=== PATIENT | male | born 1925 | race African-American/Black ===

== ENCOUNTER 2016-07-02 11:20 | Inpatient (IN) | payer MEDICARE, OTHER ==
[~2016-07-02] VITALS: Ht 185.4 cm; Wt 90.7 kg
--- NOTE | 2016-07-02 12:30 | Emergency Room Report ---
History of Present Illness General Chief Complaint: Edema Source: Patient, Medical Record, EMS Present Illness HPI Patient presents from nursing facility with several complaints I spoke to the patient's primary physician was concerned that the patient is fairly to take oral intake Also noticed increased swelling in both lower extremities Patient has a history of CHF Denied any chest pain at this time denies any shortness of breath Denies any back or flank pain Patient has felt increasingly weak over the past several days denies any obvious focal weakness or fall Allergies: Coded Allergies: BENAZEPRIL (Unverified Allergy, Intermediate, 03/03/16) TERAZOSIN (Verified Allergy, Intermediate, 03/03/16) Uncoded Allergies: BENAZEPRIL (Allergy, Intermediate, 03/03/16) Patient History Past Medical History: see triage record Pertinent Family History: none Reviewed Nursing Documentation: PMH: Agreed, PSxH: Agreed Nursing Documentation-PMH Past Medical History: No History, Except For Hx Hypertension: Yes 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 Review of Systems All Other Systems: negative except mentioned in HPI Physical Exam Vital Signs Date Time Temp Pulse Resp B/P Pulse Ox O2 Delivery O2 Flow Rate FiO2 07/02/16 11:26 96.8 71 18 150/95 99 Room Air Sp02 EP Interpretation: reviewed, normal General Appearance: no apparent distress Head: normocephalic, atraumatic Eyes: bilateral eye EOMI, bilateral eye PERRL ENT: hearing grossly normal, normal pharynx, TMs + canals normal, uvula midline Neck: full range of motion, supple, no meningismus, no bony tend Respiratory: no rhonchi, no respiratory distress, no retraction, no accessory muscle use, crackles Cardiovascular #1: normal peripheral pulses, regular rate, rhythm, no gallop, no JVD, no murmur Gastrointestinal: normal bowel sounds, non tender, soft, no mass, no organomegaly, non-distended, no guarding, no hernia, no pulsatile mass, no rebound Genitourinary: no CVA tenderness Musculoskeletal: other - No obvious focal deficit Neurologic: responsive, motor strength/tone normal, sensory intact Psychiatric: mood/affect normal Skin: other - Dependent edema in both lower extremities, also venous-stasis appreciated Lymphatic: other - edema Medical Decision Making Diagnostic Impression: Primary Impression: Edema Additional Impressions: Leukopenia Anemia Weakness pulmonary effusion ER Course Patient is a fairly complex patient with multiple differential to consideration including but not limited to cardiac cardiopulmonary and vascular emergencies Patient's edema present be somewhat chronic in nature however third spacing cannot be ruled out patient shows evidence of leukopenia and anemia possible viral pathology as well Patient admitted for further inpatient care Labs Test 07/02/16 13:40 White Blood Count 3.6 K/UL (4.8-10.8) Red Blood Count 3.80 M/UL (4.70-6.10) Hemoglobin 12.0 G/DL (14.2-18.0) Hematocrit 38.9 % (42.0-52.0) Mean Corpuscular Volume 102 FL (80-99) Mean Corpuscular Hemoglobin 31.6 PG (27.0-31.0) Mean Corpuscular Hemoglobin Concent 30.9 G/DL (32.0-36.0) Red Cell Distribution Width 13.1 % (11.6-14.8) Platelet Count 155 K/UL (150-450) Mean Platelet Volume 8.1 FL (6.5-10.1) Neutrophils (%) (Auto) 56.4 % (45.0-75.0) Lymphocytes (%) (Auto) 27.9 % (20.0-45.0) Monocytes (%) (Auto) 12.1 % (1.0-10.0) Eosinophils (%) (Auto) 2.4 % (0.0-3.0) Basophils (%) (Auto) 1.2 % (0.0-2.0) Prothrombin Time 12.3 SEC (9.30-11.50) Prothromb Time International Ratio 1.2 (0.9-1.1) Activated Partial Thromboplast Time 30 SEC (23-33) Urine Color Pale yellow Urine Appearance Clear Urine pH 7 (4.5-8.0) Urine Specific [place] 1.005 (1.005-1.035) Urine Protein Negative (NEGATIVE) Urine Glucose (UA) Negative (NEGATIVE) Urine Ketones Negative (NEGATIVE) Urine Occult Blood Negative (NEGATIVE) Urine Nitrite Negative (NEGATIVE) Urine Bilirubin Negative (NEGATIVE) Urine Urobilinogen Normal MG/DL (0.0-1.0) Urine Leukocyte Esterase Negative (NEGATIVE) Sodium Level 140 mEQ/L (135-145) Potassium Level 4.2 mEQ/L (3.4-4.9) Chloride Level 97 mEQ/L (98-107) Carbon Dioxide Level 31 mEQ/L (20-30) Anion Gap 12 (5-15) Blood Urea Nitrogen 10 mg/dL (7-23) Creatinine 1.0 mg/dL (0.7-1.2) Estimat Glomerular Filtration Rate mL/min (>60) Glucose Level 120 mg/dL (74-106) Calcium Level 9.3 mg/dL (8.6-10.2) Total Bilirubin 1.2 mg/dL (0.0-1.2) Direct Bilirubin 0.5 mg/dL (0.1-0.3) Aspartate Amino Transf (AST/SGOT) 30 U/L (5-40) Alanine Aminotransferase (ALT/SGPT) 29 U/L (3-41) Alkaline Phosphatase 63 U/L (40-129) Total Creatine Kinase 166 U/L (38-174) Creatine Kinase MB 3.4 ng/mL (< 6.7) Creatine Kinase MB Relative Index 2.0 Troponin I < 0.30 ng/mL (<=0.30) Pro-B-Type Natriuretic Peptide 3860 pg/mL (0-450) Total Protein 7.2 g/dL (6.6-8.7) Albumin 4.0 g/dL (3.5-5.2) Globulin 3.2 g/dL Albumin/Globulin Ratio 1.2 (1.0-2.7) Lipase 26 U/L (< 60) Rhythm Strip Diag. Results EP Interpretation: yes Rate: 66 Rhythm: NSR, no PVC's, no ectopy Chest X-Ray Diagnostic Results EP Interpretation: Yes Findings: no pneumothorax, other - Cardiomegaly, right-sided effusion Number of Views: 1 Last Vital Signs Date Time Temp Pulse Resp B/P Pulse Ox O2 Delivery O2 Flow Rate FiO2 07/02/16 11:26 96.8 71 18 150/95 99 Room Air Status: improved Disposition: ADMITTED INPATIENT Condition: Serious Referrals: Elliot Gonzalez MD (PCP) ELLIOT BURKETT D.O. Jul 02, 2016 12:30
[2016-07-02 13:14] VITALS: BP 136/72
[2016-07-02 13:55] LABS: BASOPHILS % (AUTO) 1.2 % (0.0-2.0); EOSINOPHILS % (AUTO) 2.4 % (0.0-3.0); LYMPHOCYTES % (AUTO) 27.9 % (20.0-45.0); MEAN CORPUSCULAR HEMOGLOBIN 31.6 PG (27.0-31.0); MEAN CORPUSCULAR HGB CONC 30.9 G/DL (32.0-36.0); MEAN CORPUSCULAR VOLUME 102 FL (80-99); MEAN PLATELET VOLUME 8.1 FL (6.5-10.1); MONOCYTES % (AUTO) 12.1 % (1.0-10.0); NEUTROPHILS % (AUTO) 56.4 % (45.0-75.0); PLATELET COUNT 155 K/UL (150-450); RED CELL DISTRIBUTION WIDTH 13.1 % (11.6-14.8); WHITE BLOOD COUNT 3.6 K/UL (4.8-10.8)
[2016-07-02 14:05] LABS: INR 1.2 (0.9-1.1); PROTHROMBIN TIME 12.3 SEC (9.30-11.50)
[2016-07-02 14:11] LABS: APPEARANCE,URINE CLEAR; KETONES,URINE NEGATIVE (NEGATIVE); LEUKOCYTE ESTERASE ,URINE NEGATIVE (NEGATIVE); NITRITE,URINE NEGATIVE (NEGATIVE); PH,URINE 7 (4.5-8.0); PROTEIN,URINE NEGATIVE (NEGATIVE); UROBILINOGEN,URINE NORMAL MG/DL (0.0-1.0)
[2016-07-02 14:12] LABS: ALANINE AMINOTRANSFERASE 29 U/L (3-41); ALBUMIN/GLOBULIN RATIO 1.2 (1.0-2.7); ANION GAP 12 (5-15); ASPARTATE AMINO TRANSFERASE 30 U/L (5-40); CALCIUM 9.3 mg/dL (8.6-10.2); CARBON DIOXIDE 31 mEQ/L (20-30); CHLORIDE 97 mEQ/L (98-107); HEMOLYSIS 2; LIPASE 26 U/L (< 60); POTASSIUM 4.2 mEQ/L (3.4-4.9); SODIUM 140 mEQ/L (135-145); TOTAL PROTEIN 7.2 g/dL (6.6-8.7); TROPONIN I < 0.30 ng/mL (<=0.30)
[2016-07-02 14:23] LABS: CKMB 3.4 ng/mL (< 6.7)
[2016-07-02 14:33] LABS: BILIRUBIN,DIRECT 0.5 mg/dL (0.1-0.3)
[2016-07-02] MEDS ORDERED: FERROUS SULFAT325 MG ORAL (15:40)
[2016-07-02] MEDS ORDERED: FUROSEMIDE20 M1 ORAL (15:40)
[2016-07-02] MEDS ORDERED: ATORVASTATIN CA10 MG ORAL (15:40)
[2016-07-02] MEDS ORDERED: LEVOXYL25 MCG ORAL (15:40)
[2016-07-02] MEDS ORDERED: DOCUSATE SODIU250 MG ORAL (15:40)
[2016-07-02] MEDS ORDERED: COZAAR25 MG ORAL (15:40)
[2016-07-02] MEDS ORDERED: LOPERAMIDE2 M1 PO (15:40)
[2016-07-02] MEDS ORDERED: TAMSULOSIN HCL0.4 MG ORAL (15:40)
[2016-07-02] MEDS ORDERED: MULTIVITAMINS1 EAC8 ORAL (15:40)
[2016-07-02] MEDS ORDERED: TYLENOL EXTRA500 MG ORAL (15:44)
[2016-07-02] MEDS ORDERED: VITAMIN C500 M1 ORAL (15:44)
[2016-07-02] MEDS ORDERED: NEURONTIN100 MG ORAL (15:44)
[2016-07-02] MEDS ORDERED: LATANOPROST2.5 ML BOTH EYES (15:44)
[2016-07-02 15:49] VITALS: BP 134/77
[2016-07-02 20:00] VITALS: BP 155/77
[2016-07-02 20:22] LABS: BASOPHILS % (AUTO) 0.5 % (0.0-2.0); EOSINOPHILS % (AUTO) 2.3 % (0.0-3.0); LYMPHOCYTES % (AUTO) 16.5 % (20.0-45.0); MEAN CORPUSCULAR HEMOGLOBIN 32.5 PG (27.0-31.0); MEAN CORPUSCULAR HGB CONC 32.1 G/DL (32.0-36.0); MEAN CORPUSCULAR VOLUME 101 FL (80-99); MEAN PLATELET VOLUME 7.4 FL (6.5-10.1); MONOCYTES % (AUTO) 16.5 % (1.0-10.0); NEUTROPHILS % (AUTO) 64.2 % (45.0-75.0); PLATELET COUNT 126 K/UL (150-450); RED BLOOD COUNT 3.65 M/UL (4.70-6.10); RED CELL DISTRIBUTION WIDTH 12.7 % (11.6-14.8); WHITE BLOOD COUNT 4.2 K/UL (4.8-10.8)
[2016-07-02 20:57] LABS: ALANINE AMINOTRANSFERASE 28 U/L (3-41); ALBUMIN/GLOBULIN RATIO 1.3 (1.0-2.7); ANION GAP 15 (5-15); ASPARTATE AMINO TRANSFERASE 33 U/L (5-40); CARBON DIOXIDE 29 mEQ/L (20-30); CHLORIDE 94 mEQ/L (98-107); CREATININE 0.9 mg/dL (0.7-1.2); HEMOLYSIS 32; POTASSIUM 3.8 mEQ/L (3.4-4.9); SODIUM 138 mEQ/L (135-145); TOTAL PROTEIN 6.5 g/dL (6.6-8.7)
[2016-07-02 21:20] LABS: BILIRUBIN,DIRECT 0.5 mg/dL (0.1-0.3)
[2016-07-03 04:00] VITALS: BP 108/56
[2016-07-03] MEDS: Levothyroxine 25mcg tab ORAL SCH (06:30)
[2016-07-03 08:44] VITALS: BP 115/68
[2016-07-03] MEDS ORDERED: Influenza Virus Vaccine 0.5ml IM ONE (09:00)
[2016-07-03] MEDS: Losartan 25mg tab ORAL SCH (09:00)
[2016-07-03] MEDS ORDERED: Pneumococcal Vaccine 25mcg/0.5ml IM ONE (09:00)
[2016-07-03] MEDS: Docusate 250mg cap ORAL SCH (09:00)
[2016-07-03] MEDS: Ascorbic Acid 500mg tab ORAL SCH ×2 (09:09→17:43)
[2016-07-03] MEDS: Miconazole 2% Cream 30gm TOPIC SCH ×2 (09:09→17:43)
[2016-07-03 12:00] VITALS: BP 147/78
--- NOTE | 2016-07-03 14:15 | History and Physical ---
History of Present Illness General Date patient seen: Jul 03, 2016 Reason for Hospitalization: Edema Present Illness HPI Pt is an 89yr old AA male resident of [facility] who was brought to the ED for dehydration. He stated that his reason for the visit is cough and SOB, he noted that he was coughing a lot, thinks he might have pneumonia since he has had that before. Denies chest pain, no fever or chills, no N/V. History includes HTN, hyperlipidemia, hypothyroidism, CHF, and BPH. Allergies: Coded Allergies: BENAZEPRIL (Unverified Allergy, Intermediate, 03/03/16) TERAZOSIN (Verified Allergy, Intermediate, 03/03/16) Uncoded Allergies: BENAZEPRIL (Allergy, Intermediate, 03/03/16) Medication History Scheduled Ascorbic Acid* (Vitamin C*), 500 MG ORAL TWICE A DAY, (Reported) Atorvastatin Calcium* (Lipitor*), 10 MG ORAL BEDTIME, (Reported) Docusate Sodium* (Docusate Sodium*), 250 MG ORAL DAILY, (Reported) Ferrous Sulfate* (Ferrous Sulfate*), 325 MG ORAL DAILY, (Reported) Furosemide* (Lasix*), 20 MG ORAL DAILY, (Reported) Gabapentin* (Neurontin*), 300 MG ORAL THREE TIMES A DAY, (Reported) Latanoprost* (Xalatan*), 1 DROP BOTH EYES BEDTIME, (Reported) Levothyroxine Sodium* (Levoxyl*), 25 MCG ORAL DAILY, (Reported) Loperamide Hcl (Loperamide), 4 MG PO EVERY 12 HOURS, (Reported) Losartan Potassium* (Cozaar*), 25 MG ORAL DAILY, (Reported) Multivitamin With Minerals (Multivitamins With Minerals*), 1 TAB ORAL DAILY, ( Reported) Tamsulosin Hcl (Tamsulosin Hcl*), 0.4 MG ORAL BEDTIME, (Reported) Scheduled PRN Acetaminophen* (Tylenol Extra Strength*), 500 MG ORAL DAILY PRN for Mild Pain/ Temp > 100.5, (Reported) Patient History Limited by: age, medical condition History Provided By: Patient, Medical Record Healthcare decision maker Emmanuel Boudreaux Resuscitation status Full Code Advanced Directive on File Past Medical/Surgical History Past Medical/Surgical History: (1) CHF (congestive heart failure) (2) HTN (hypertension) (3) PNA (pneumonia) (4) Hypothyroidism (5) HLD (hyperlipidemia) (6) DDD (degenerative disc disease) Review of Systems Constitutional: Reports: weakness Eye: Denies: acuity changes, blurred vision, discharge, double vision, eye pain , no symptoms, nose congestion, nose pain, other, see HPI, tearing ENT: Denies: ear discharge, ear pain, hearing loss, mouth pain, nasal discharge , no symptoms, nose congestion, nose pain, other, see HPI, throat pain, throat swelling Respiratory: Reports: cough, shortness of breath Cardiovascular: Denies: PND, chest pain, edema, no symptoms, other, palpitations, see HPI, syncope Gastrointestinal: Denies: abdominal pain, constipation, diarrhea, hematemesis, melena, nausea, no symptoms, other, see HPI, vomiting Genitourinary: Denies: discharge, dysuria, frequency, hematuria, incontinence, no symptoms, other, pain, retention, see HPI, urgency, vag bleed/dc Musculoskeletal: Reports: back pain Skin: Reports: lesions - LOWER EXTREMITY Psychiatric: Denies: HI, SI, anxiety, depressed feelings, emotional problems, hallucinations, no symptoms, other, prior hx, see HPI Neurological: Denies: dizziness, focal weakness, headache, no symptoms, numbness, other, paresthesia, see HPI, seizure, syncope, tingling, tremors Endocrine: Denies: excessive sweating, flushing, increased thirst, increased urine, intolerance to temperature, no symptoms, other, see HPI, unexplained weight loss Hematologic/Lymphatic: Denies: anemia, blood clots, diathesis, easy bleeding, easy bruising, no symptoms, other, see HPI, swollen glands Physical Exam General Appearance: alert Lines, tubes and drains: peripheral HEENT: normocephalic, atraumatic, mucous membranes moist Neck: non-tender, normal alignment, supple, normal inspection Respiratory/Chest: normal breath sounds, no respiratory distress Cardiovascular/Chest: normal rate, regular rhythm, no JVD Abdomen: non tender, soft, no organomegaly Extremities: other - Left foot stasis ulcer Skin Exam: normal pigmentation, warm/dry Neurologic: alert, oriented x 3, responsive, normal mood/affect Last 24 Hour Vital Signs Date Time Temp Pulse Resp B/P Pulse Ox O2 Delivery O2 Flow Rate FiO2 07/03/16 09:00 115/68 07/03/16 08:44 100.0 75 20 115/68 99 Room Air 07/03/16 04:00 97.9 73 18 108/56 99 Room Air 07/02/16 20:00 96.8 69 18 155/77 100 Room Air 07/02/16 17:54 97.8 69 18 100 Room Air 07/02/16 16:23 96.8 68 17 134/77 100 Room Air 07/02/16 15:49 96.8 68 17 134/77 100 Room Air Intake and Output 07/02/16 07/03/16 19:00 07:00 Intake Total 400 ml Balance 400 ml Intake Oral 400 ml # Voids 2 5 Laboratory Tests Test 07/02/16 20:10 07/02/16 20:15 White Blood Count 4.2 K/UL (4.8-10.8) L Red Blood Count 3.65 M/UL (4.70-6.10) L Hemoglobin 11.9 G/DL (14.2-18.0) L Hematocrit 36.9 % (42.0-52.0) L Mean Corpuscular Volume 101 FL (80-99) H Mean Corpuscular Hemoglobin 32.5 PG (27.0-31.0) H Mean Corpuscular Hemoglobin Concent 32.1 G/DL (32.0-36.0) Red Cell Distribution Width 12.7 % (11.6-14.8) Platelet Count 126 K/UL (150-450) L Mean Platelet Volume 7.4 FL (6.5-10.1) Neutrophils (%) (Auto) 64.2 % (45.0-75.0) Lymphocytes (%) (Auto) 16.5 % (20.0-45.0) L Monocytes (%) (Auto) 16.5 % (1.0-10.0) H Eosinophils (%) (Auto) 2.3 % (0.0-3.0) Basophils (%) (Auto) 0.5 % (0.0-2.0) Sodium Level 138 mEQ/L (135-145) Potassium Level 3.8 mEQ/L (3.4-4.9) Chloride Level 94 mEQ/L (98-107) L Carbon Dioxide Level 29 mEQ/L (20-30) Anion Gap 15 (5-15) Blood Urea Nitrogen 10 mg/dL (7-23) Creatinine 0.9 mg/dL (0.7-1.2) Estimat Glomerular Filtration Rate mL/min (>60) Glucose Level 114 mg/dL (74-106) H Calcium Level 9.0 mg/dL (8.6-10.2) Total Bilirubin 1.3 mg/dL (0.0-1.2) H Direct Bilirubin 0.5 mg/dL (0.1-0.3) H Aspartate Amino Transf (AST/SGOT) 33 U/L (5-40) Alanine Aminotransferase (ALT/SGPT) 28 U/L (3-41) Alkaline Phosphatase 63 U/L (40-129) Total Protein 6.5 g/dL (6.6-8.7) L Albumin 3.7 g/dL (3.5-5.2) Globulin 2.8 g/dL Albumin/Globulin Ratio 1.3 (1.0-2.7) Height (Feet): 6 Height (Inches): 1.00 Weight (Pounds): 200 Medications Current Medications Medications (Trade) Dose Ordered Sig/Bernardino Route PRN Reason Start Time Stop Time Status Last Admin Dose Admin Acetaminophen (Tylenol) 500 mg DAILY PRN ORAL Mild Pain/Temp > 100.5 07/02/16 18:30 08/01/16 18:29 Ascorbic Acid (Vitamin C) 500 mg TWICE A DAY ORAL 07/03/16 09:00 08/02/16 08:59 07/03/16 09:09 Atorvastatin Calcium (Lipitor) 10 mg BEDTIME ORAL 07/02/16 21:00 08/01/16 20:59 07/02/16 22:20 Docusate Sodium (Colace) 250 mg DAILY ORAL 07/03/16 09:00 08/02/16 08:59 Ferrous Sulfate (Feosol) 325 mg DAILY ORAL 07/03/16 09:00 08/02/16 08:59 07/03/16 09:08 Furosemide (Lasix) 20 mg DAILY ORAL 07/03/16 09:00 08/02/16 08:59 07/03/16 09:09 Gabapentin (Neurontin) 300 mg THREE TIMES A DAY ORAL 07/02/16 18:30 08/01/16 18:29 07/03/16 13:41 Latanoprost (Xalatan) 1 drop BEDTIME BOTH EYES 07/02/16 21:00 08/01/16 20:59 Levothyroxine Sodium (Synthroid) 25 mcg ACBREAKFAST ORAL 07/03/16 06:30 08/02/16 06:29 07/03/16 06:30 Losartan Potassium (Cozaar) 25 mg DAILY ORAL 07/03/16 09:00 08/02/16 08:59 Miconazole Nitrate (Miconazole Nitrate) 1 applic BID TOPIC 07/03/16 09:00 08/02/16 08:59 07/03/16 09:09 Assessment/Plan Problem List: (1) Anemia ICD Codes: D64.9 - Anemia, unspecified SNOMED: 067046486 (2) Leukopenia ICD Codes: D72.819 - Decreased white blood cell count, unspecified SNOMED: 77442853 (3) Weakness ICD Codes: R53.1 - Weakness SNOMED: 21377431 (4) CHF (congestive heart failure) ICD Codes: I50.9 - Heart failure, unspecified SNOMED: 04716674 (5) Pancytopenia ICD Codes: D61.818 - Other pancytopenia SNOMED: 209489070 Status: stable Assessment/Plan Cardiology Consult Hematology consult Continue wound care Will monitor H&H DVT prophylaxis AM labs Kayla Castañeda N.P. Jul 03, 2016 14:15
[2016-07-03 15:36] VITALS: BP 135/69
--- NOTE | 2016-07-03 17:04 | Cardiac Electrophysiology PN ---
Subjective Subjective [id number] Objective Last 24 Hour Vital Signs Date Time Temp Pulse Resp B/P Pulse Ox O2 Delivery O2 Flow Rate FiO2 07/03/16 15:36 97.9 69 19 135/69 99 Room Air 07/03/16 12:00 97.7 76 20 147/78 100 Room Air 07/03/16 09:00 115/68 07/03/16 08:44 100.0 75 20 115/68 99 Room Air 07/03/16 04:00 97.9 73 18 108/56 99 Room Air 07/02/16 20:00 96.8 69 18 155/77 100 Room Air 07/02/16 17:54 97.8 69 18 100 Room Air Intake and Output 07/02/16 07/03/16 19:00 07:00 Intake Total 400 ml Balance 400 ml Intake Oral 400 ml # Voids 2 5 Laboratory Tests Test 07/02/16 20:10 07/02/16 20:15 07/03/16 16:30 White Blood Count 4.2 K/UL (4.8-10.8) L Red Blood Count 3.65 M/UL (4.70-6.10) L Hemoglobin 11.9 G/DL (14.2-18.0) L Hematocrit 36.9 % (42.0-52.0) L Mean Corpuscular Volume 101 FL (80-99) H Mean Corpuscular Hemoglobin 32.5 PG (27.0-31.0) H Mean Corpuscular Hemoglobin Concent 32.1 G/DL (32.0-36.0) Red Cell Distribution Width 12.7 % (11.6-14.8) Platelet Count 126 K/UL (150-450) L Mean Platelet Volume 7.4 FL (6.5-10.1) Neutrophils (%) (Auto) 64.2 % (45.0-75.0) Lymphocytes (%) (Auto) 16.5 % (20.0-45.0) L Monocytes (%) (Auto) 16.5 % (1.0-10.0) H Eosinophils (%) (Auto) 2.3 % (0.0-3.0) Basophils (%) (Auto) 0.5 % (0.0-2.0) Sodium Level 138 mEQ/L (135-145) Potassium Level 3.8 mEQ/L (3.4-4.9) Chloride Level 94 mEQ/L (98-107) L Carbon Dioxide Level 29 mEQ/L (20-30) Anion Gap 15 (5-15) Blood Urea Nitrogen 10 mg/dL (7-23) Creatinine 0.9 mg/dL (0.7-1.2) Estimat Glomerular Filtration Rate mL/min (>60) Glucose Level 114 mg/dL (74-106) H Calcium Level 9.0 mg/dL (8.6-10.2) Total Bilirubin 1.3 mg/dL (0.0-1.2) H Direct Bilirubin 0.5 mg/dL (0.1-0.3) H Aspartate Amino Transf (AST/SGOT) 33 U/L (5-40) Alanine Aminotransferase (ALT/SGPT) 28 U/L (3-41) Alkaline Phosphatase 63 U/L (40-129) Total Protein 6.5 g/dL (6.6-8.7) L Albumin 3.7 g/dL (3.5-5.2) Globulin 2.8 g/dL Albumin/Globulin Ratio 1.3 (1.0-2.7) Iron Level Pending Unsaturated Iron Binding Pending Ferritin Pending Vitamin B12 Level Pending Folate Pending Hepatitis A IgM Antibody Pending Hepatitis B Surface Antigen Pending Hepatitis B Core IgM Antibody Pending Hepatitis C Antibody Pending HIV (1&2) Antibody Rapid Pending ORTIZ ZARAGOZA Jul 03, 2016 17:04
--- NOTE | 2016-07-03 18:01 | Wound Care Consultation ---
Wound Assessment Wound Assessment : Wound Present on Admission: Yes New Wound: No Status Change of Wound: No Wound Location Body Site Modif: left, dorsal Wound Location Body Site: foot Wound Type: lesion-etiology unknown Suzan Test: Does not Suzan Edema Degree: 4+ marked deep indentation Wound Thickness: Full Thickness Wound Length: 5.5 Wound Width: 6.0 Wound Depth: utd Percent of Wound [place]/Red: 50 Percent of Wound Bed Yellow/Wh: 50 Wound Drainage Description: Serosanguineous Wound Drainage Amount: Scant Wound Drainage Odor: Mild Odor Tissue Surrounding Wound: Edematous Wound General Appearance: Reddened, Draining Wound Comment #1 Left dorsal foot open wound etiology unknown. #2 Both lower extremities with dry scaly skin. Skin warm to touch. Edema noted on both legs. Recommendation -Turn and reposition -Keep clean and dry -Local wound care as ordered by MD -Optimize nutrition -Elevate both legs -Offload both heels -Keep skin moist -Assess and f/u with MD for any changes JAKE MCINTYRE RN Jul 03, 2016 18:01
[2016-07-03 20:00] VITALS: BP 119/62
[2016-07-03] MEDS: Heparin 5000 units/ml inj SUBQ SCH (20:22)
[2016-07-03] MEDS: Acetaminophen 500mg (ES) tab ORAL PRN (20:25)
--- NOTE | 2016-07-03 22:57 | History and Physical Report ---
DATE OF ADMISSION: 07/02/2016 HISTORY OF PRESENT ILLNESS: The patient is admitted for renal insufficiency, azotemia, dehydration, failure to thrive, and not eating. The patient is a poor historian, cannot reliable history. However, denies pain, nausea, vomiting, or diarrhea . 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 PAST SURGICAL HISTORY: Denies. MEDICATIONS: Colace, Lipitor, vitamin C, Tyelnol, furosemide, gabapentin, Xalatan, multivitamin, and Flomax. ALLERGIES: benazepril . SOCIAL HISTORY: Unable to obtain. FAMILY HISTORY: Noncontributory. REVIEW OF SYSTEMS: Unable to obtain. He is a poor historian. PHYSICAL EXAMINATION: VITAL SIGNS: Temperature 96.8 degrees, pulse 69, and blood pressure 155/77. HEENT: PERRLA. NECK: Supple. No lymphadenopathy. CHEST: Clear to auscultation. GI: Soft, nontender, and nondistended. No organomegaly. EXTREMITIES: The patient does have multiple contractures. SKIN: For skin integrity, please refer to the nursing notes. NEUROLOGIC: Dysarthric ____ oriented x0 bedbound . LABORATORY DATA: WBC 63.6, hemoglobin 12, and platelets 155,000. Sodium 140, potassium 4.2, BUN 10, creatinine 1, and glucose 120. BNP 3260. ASSESSMENT AND PLAN: 1. Elevated brain natriuretic peptide. 2. Dehydration. 3. Azotemia. 4. Failure to thrive. 5. edema. PLAN: I have asked Dr. Guerrier, Dr. Mac, Dr. Roby Dr. out rule out any infectious etiology as well as for failure to thrive and anorexia. Elliot Gonzalez M.D. DR: Yanira JOB#: [id number] CC:
[2016-07-04] VITALS: BP 126/67
--- NOTE | 2016-07-04 01:07 | Consultation ---
DATE OF CONSULTATION: 07/03/2016 CHIEF COMPLAINT: I was asked to see this patient by Dr. Elliot Gonzalez for evaluation of failure to thrive. HISTORY OF PRESENT ILLNESS: The patient is an 89-year-old man, who is a questionable historian, who comes into the hospital from a [facility] for evaluation of dehydration. The patient has been noted to have failure to thrive with poor oral intake. The patient complains of diarrhea for few weeks, but he denies any nausea or vomiting. He is overall not feeling well, but he is not sure why. He thinks he may have had a colonoscopy few years ago, but he cannot recall the results or where it was done. PAST MEDICAL HISTORY: History of prostate cancer status post open prostatectomy, history of hypertension, hyperlipidemia, hypothyroidism, and congestive heart failure. ALLERGIES: Benazepril and terazosin. SOCIAL HISTORY: The patient resides in a shelter. He denies any smoking or drinking or drug use. He is a . FAMILY HISTORY: Noncontributory and unavailable. REVIEW OF SYSTEMS: Otherwise negative. PHYSICAL EXAMINATION: GENERAL: An elderly man, seen in his room. HEENT: Normocephalic and atraumatic. Sclerae anicteric. Oropharynx clear. NECK: Supple. CHEST: Clear to auscultation. CARDIOVASCULAR: Revealed a regular rate. ABDOMEN: Distended and tympanitic. He has a lower midline abdominal scar corresponding to his prostate surgery. EXTREMITIES: Revealed bilateral chronic venous stasis edema changes. NEUROLOGIC: Grossly nonfocal. LABORATORY DATA: Noted. ASSESSMENT: This patient presents with failure to thrive of unclear etiology. His abdomen appears to be distended. He complains of diarrhea. He should be checked for infections including Clostridium difficile and imaging studies of the abdomen including stool tests also should be done. After the above tests are being done, further recommendations will be made. RECOMMENDATIONS: 1. Check imaging of the abdomen. 2. Check stool cultures. 3. Check stool for occult blood. 4. Intravenous hydration. 5. Further recommendations to follow. Thank you for asking me to participate in the care of this patient. Luke Casillas M.D. DR: JAMES JOB#: [id number] CC:
--- NOTE | 2016-07-04 02:27 | Consultation ---
DATE OF CONSULTATION: CARDIOLOGY CONSULTATION CONSULTING PHYSICIAN: Chapincito Campos M.D. REFERRING PHYSICIAN: Fahad Talamantes M.D. REASON FOR CONSULTATION: Shortness of breath, leg edema, hypertension, and congestive heart failure. HISTORY OF PRESENT ILLNESS: The patient is an 89-year-old gentleman from [facility] with history of hypertension, hypothyroidism, hyperlipidemia, and congestive heart failure was brought to the emergency room for reported dehydration. The patient, however, states that he was having a lot of cough and he has been having diarrhea. He thinks that he may be having some pneumonia, he had it before. The patient was admitted and a Cardiology consultation was obtained for further evaluation. At the time of my evaluation, he denies any chest pain. His major complaint is his diarrhea and some shortness of breath. PAST MEDICAL HISTORY: 1. Hypertension. 2. Hyperlipidemia. 3. Congestive heart failure. 4. Hypothyroidism. 5. Benign prostatic hypertrophy. MEDICATIONS: Include Lipitor 10 mg daily, ferrous sulfate, Lasix, Synthroid, losartan, Flomax, ascorbic acid, and Lipitor. ALLERGIES: He is allergic to benazepril and terazosin. SOCIAL HISTORY: [facility] lives in [facility]. Does not smoke or drink alcohol. FAMILY HISTORY: Noncontributory. REVIEW OF SYSTEMS: Review of systems was performed and was negative other than what was mentioned in the history of present illness. PHYSICAL EXAMINATION: VITAL SIGNS: Blood pressure is 135/69, pulse 69, respirations 19, and temperature 97.9 degrees. NECK: Shows mild JVD. LUNGS: Decreased breath sounds. CARDIOVASCULAR: Shows regular S1 and S2 with no gallop or murmur. ABDOMEN: Soft. EXTREMITIES: A 2+ pitting edema as well as scrotal edema. LABORATORY DATA: Show white count of 4.2, hemoglobin 11.9, hematocrit 36.9, and platelet count of 126,000. Sodium 138, potassium 3.8, BUN of 10, creatinine of 0.99, and glucose of 114. His BNP is 3860. Troponin is negative. His INR is 1.2. Urinalysis was negative. ASSESSMENT AND PLAN: 1. Bilateral lower extremity edema as well as scrotal edema. I will start him on Lasix 40 mg IV daily, but we will be very cautious because the patient also has diarrhea. However, his laboratory findings are not suggestive of azotemia or volume depletion with BUN and creatinine ratio only 10. We will get an echocardiogram to evaluate for ejection fraction and wall motion abnormality. We will completely rule out myocardial infarction protocol. Repeated BNP to see how much it comes down. 2. Hypertension. Continue Lasix and Cozaar 25 mg daily. 3. Hyperlipidemia, on Lipitor. 4. Hypothyroidism, on Synthroid. 5. Diarrhea. We will send the stool for Clostridium difficile for further evaluation. Thank very much, Dr. Talamantes, for allowing me to participate in the care of this patient. Please do not hesitate to contact me for any questions regarding my evaluation. Chapincito Campos M.D. DR: ABRAHAN JOB#: [id number] CC:
--- NOTE | 2016-07-04 03:08 | Consultation ---
DATE OF CONSULTATION: 07/03/2016 CONSULTING PHYSICIAN: Reilly Molina M.D. REQUESTING PHYSICIAN: Fahad Talamantes M.D. REASON FOR CONSULTATION: Evaluation of pancytopenia. IDENTIFICATION DATA: Dear Dr. 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 In addition, he has some cough in addition to shortness of breath. He has been having chronic cough over the past several weeks and per the patient, he believes that he had pneumonia. Chest x-ray was completed in the ER, which at this time is pending. In addition, the patient had labs drawn, which showed a BUN of 10, creatinine 0.9, and INR was 1.2. WBC was 4.2, hemoglobin 11.9, hematocrit 37, and platelet count 126,000. Hematology service was consulted for evaluation and treatment. PAST MEDICAL HISTORY: As noted above. PAST SURGICAL HISTORY: None noted. MEDICATIONS: , Lasix, Neurontin, levothyroxine . ALLERGIES: Penicillin. SOCIAL HISTORY: No alcohol, tobacco, or illicit drug use. REVIEW OF SYSTEMS: Constitutional: No fever, chills, or night sweats. Skin: No rashes, lumps, or itching. HEENT: No headache or vision changes. Breasts: No lumps, pain, or discharge. Pulmonary: The patient is having some cough and shortness of breath. Cardiovascular: No chest pain, tightness, or palpitations. Gastrointestinal: No nausea, vomiting, or diarrhea. Genitourinary: No dysuria, frequency, or urgency. Musculoskeletal: No joint swelling, muscle pain, or trauma. Neurologic: No dizziness, fainting, or seizures. PHYSICAL EXAMINATION: GENERAL: The patient is in no acute distress. VITAL SIGNS: Temperature 97.7 degrees Fahrenheit , pulse rate 60, respiratory rate of 20, blood pressure 147/78, and pulse oximetry is 100% on room air. PULMONARY: Decreased breath sounds. CARDIOVASCULAR: Regular rate and rhythm. ABDOMEN: Soft, nontender, and nondistended. EXTREMITIES: There is 1+ edema. LABORATORY DATA: WBC 4.3, hemoglobin 11.9, hematocrit 30, platelet count of 126,000, and MCV of 101. INR 1.2. ASSESSMENT: 1. Pancytopenia, potentially concerning for liver disease in the patient to benign congenital neutropenia, underlying infection. Continue to closely monitor . 2. 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 3. Thrombocytopenia, potentially secondary to infection above 100,000 and stable. 4. Anemia, decreased hemoglobin and hematocrit, rule out gastrointestinal bleed. 5. Coagulopathy, potentially secondary to either malnutrition and/or liver disease. 6. Hyperthyroidism. 7. Pneumonia. 8. Chronic cough. 9. Hypertension. RECOMMENDATIONS: 1. Monitor counts. 2. Transfuse as needed. 3. Maintain hemoglobin level at 7.5. 4. Anemia workup ordered including ultrasound of the abdomen. 5. Thrombocytopenia workup ordered including TSH, B12, peripheral smear, and ultrasound of the abdomen to rule out hepatosplenomegaly and cirrhosis. 6. DVT prophylaxis with heparin subcutaneous. 7. Continue . 8. GI prophylaxis as needed. 9. Continue vitamin C. 10. Nephrology followup. 11. Discussed with staff. Thank you, Dr. Fahad Talamantes, for this kind referral. Please do not hesitate to contact me if you have any further questions. Reilly Molina M.D. DR: DOM JOB#: [id number] CC:
[2016-07-04 04:00] VITALS: BP 121/64
[2016-07-04] MEDS: Levothyroxine 25mcg tab ORAL SCH (05:48)
[2016-07-04 07:00] LABS: APPEARANCE,URINE CLEAR; KETONES,URINE 1+ (NEGATIVE); LEUKOCYTE ESTERASE ,URINE 1+ (NEGATIVE); NITRITE,URINE NEGATIVE (NEGATIVE); PH,URINE 6 (4.5-8.0); PROTEIN,URINE 2+ (NEGATIVE); UROBILINOGEN,URINE 8 MG/DL (0.0-1.0)
[2016-07-04 07:13] LABS: BACTERIA,URINE FEW /HPF; RBC,URINE 0-2 /HPF (0 - 0); SQUAMOUS EPITHELIAL CELL,UR FEW /LPF (NONE/OCC)
[2016-07-04 07:21] LABS: ANION GAP 13 (5-15); CALCIUM 8.5 mg/dL (8.6-10.2); CARBON DIOXIDE 30 mEQ/L (20-30); CHLORIDE 94 mEQ/L (98-107); HEMOLYSIS 0; POTASSIUM 3.5 mEQ/L (3.4-4.9); SODIUM 137 mEQ/L (135-145)
[2016-07-04 07:30] LABS: BASOPHILS % (AUTO) 1.4 % (0.0-2.0); EOSINOPHILS % (AUTO) 2.6 % (0.0-3.0); LYMPHOCYTES % (AUTO) 32.4 % (20.0-45.0); MEAN CORPUSCULAR HEMOGLOBIN 32.7 PG (27.0-31.0); MEAN CORPUSCULAR HGB CONC 32.6 G/DL (32.0-36.0); MEAN CORPUSCULAR VOLUME 100 FL (80-99); MEAN PLATELET VOLUME 7.3 FL (6.5-10.1); MONOCYTES % (AUTO) 15.7 % (1.0-10.0); NEUTROPHILS % (AUTO) 47.8 % (45.0-75.0); PLATELET COUNT 134 K/UL (150-450); RED BLOOD COUNT 3.27 M/UL (4.70-6.10); RED CELL DISTRIBUTION WIDTH 12.7 % (11.6-14.8); WHITE BLOOD COUNT 3.8 K/UL (4.8-10.8)
[2016-07-04 07:32] LABS: FREE T3 2.2 pg/mL (2.3-4.2)
[2016-07-04 07:36] LABS: TROPONIN I < 0.30 ng/mL (<=0.30)
[2016-07-04 08:14] VITALS: BP 147/93
[2016-07-04] MEDS: Heparin 5000 units/ml inj SUBQ SCH ×2 (08:53→20:15)
[2016-07-04] MEDS: Docusate 250mg cap ORAL SCH (08:53)
[2016-07-04] MEDS: Ascorbic Acid 500mg tab ORAL SCH ×2 (08:53→17:34)
[2016-07-04] MEDS: Losartan 25mg tab ORAL SCH (08:53)
[2016-07-04] MEDS: Miconazole 2% Cream 30gm TOPIC SCH ×2 (08:54→17:34)
--- NOTE | 2016-07-04 09:21 | General Progress Note ---
Assessment/Plan Assessment/Plan ASSESSMENT: 1. 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 Continue to closely monitor 2. 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 3. Thrombocytopenia, potentially secondary to infection above 100,000 and stable. 4. Anemia, decreased hemoglobin and hematocrit, rule out gastrointestinal bleed. 5. Coagulopathy, potentially secondary to either malnutrition and/or liver disease. 6. Decreased H/H likely 2/2 hemodilution 7. Pneumonia. 8. Chronic cough. 9. Hypertension. RECOMMENDATIONS: 1. Monitor counts. 2. Transfuse as needed. 3. Maintain hemoglobin level at 7.5. 4. Anemia workup reviewed - ferritin is wnl, tibc nml as well thus is not iron deficient 5. Thrombocytopenia workup pending with us abd 6. DVT prophylaxis with heparin subcutaneous. 7. F/U on cards recs 8. GI prophylaxis as needed. 9. Continue po iron and vitamin C. 10. Nephrology followup. 11. Discussed with staff. Thank you, Reilly Molina MD Subjective Constitutional: Reports: no symptoms HEENT: Reports: no symptoms Cardiovascular: Reports: no symptoms Respiratory: Reports: no symptoms Gastrointestinal/Abdominal: Reports: poor appetite Genitourinary: Reports: no symptoms Neurologic/Psychiatric: Reports: no symptoms Endocrine: Reports: no symptoms Hematologic/Lymphatic: Reports: anemia Allergies: Coded Allergies: BENAZEPRIL (Unverified Allergy, Intermediate, 03/03/16) TERAZOSIN (Verified Allergy, Intermediate, 03/03/16) Subjective no events overnight, not bleeding Objective Last 24 Hour Vital Signs Date Time Temp Pulse Resp B/P Pulse Ox O2 Delivery O2 Flow Rate FiO2 07/04/16 08:53 147/93 07/04/16 08:14 98.1 78 20 147/93 96 Room Air 07/04/16 04:00 98.4 71 18 121/64 95 Room Air 07/04/16 00:00 98.6 73 18 126/67 95 Room Air 07/03/16 20:00 98.0 73 16 119/62 100 Room Air 07/03/16 15:36 97.9 69 19 135/69 99 Room Air 07/03/16 12:00 97.7 76 20 147/78 100 Room Air Intake and Output 07/03/16 07/04/16 19:00 07:00 Intake Total 240 ml 380 ml Output Total 125 ml Balance 115 ml 380 ml Intake Oral 240 ml 380 ml Output Urine Total 125 ml # Voids 4 Laboratory Tests 07/03/16 16:30: Iron Level 33L, Total Iron Binding Capacity 266, Percent Iron Saturation 12L, Unsaturated Iron Binding 233, Ferritin 104, Vitamin B12 Level 1015H, Folate [ Pending], Hepatitis A IgM Antibody [Pending], Hepatitis B Surface Antigen [ Pending], Hepatitis B Core IgM Antibody [Pending], Hepatitis C Antibody [Pending ], HIV (1&2) Antibody Rapid Negative 07/04/16 06:30: Urine Color Yellow, Urine Appearance Clear, Urine pH 6, Urine Specific [place] 1.020, Urine Protein 2+H, Urine Glucose (UA) Negative, Urine Ketones 1+H, Urine Occult Blood Negative, Urine Nitrite Negative, Urine Bilirubin Negative, Urine Urobilinogen 8H, Urine Leukocyte Esterase 1+H, Urine RBC 0-2H, Urine WBC 2-4, Urine Squamous Epithelial Cells Few, Urine Bacteria Few 07/04/16 06:50: White Blood Count 3.8L, Red Blood Count 3.27L, Hemoglobin 10.7L, Hematocrit 32.7L, Mean Corpuscular Volume 100H, Mean Corpuscular Hemoglobin 32.7H, Mean Corpuscular Hemoglobin Concent 32.6, Red Cell Distribution Width 12.7, Platelet Count 134L, Mean Platelet Volume 7.3, Neutrophils (%) (Auto) 47.8, Lymphocytes ( %) (Auto) 32.4, Monocytes (%) (Auto) 15.7H, Eosinophils (%) (Auto) 2.6, Basophils (%) (Auto) 1.4, Sodium Level 137, Potassium Level 3.5, Chloride Level 94L, Carbon Dioxide Level 30, Anion Gap 13, Blood Urea Nitrogen 12, Creatinine 1.0, Estimat Glomerular Filtration Rate , Glucose Level 109H, Calcium Level 8.5L , Troponin I < 0.30, Pro-B-Type Natriuretic Peptide 4366H, Thyroid Stimulating Hormone (TSH) 6.000H, Free Thyroxine 1.50, Free Triiodothyronine 2.2L Height (Feet): 6 Height (Inches): 1.00 Weight (Pounds): 200 General Appearance: no apparent distress EENT: TMs normal Neck: supple Cardiovascular: regular rhythm Respiratory/Chest: normal breath sounds Abdomen: non tender Extremities: non-tender Edema: 1+ Leg (L), 1+ Leg (R) Edema: mild edema Neurologic: responsive Skin: warm/dry Reilly Molina Jul 04, 2016 09:21
--- NOTE | 2016-07-04 10:37 | GI Progress Note ---
Assessment/Plan Problems: (1) Poor appetite ICD Codes: R63.0 - Anorexia SNOMED: 19202911 (2) FTT (failure to thrive) in adult ICD Codes: R62.7 - Adult failure to thrive SNOMED: 731378410 (3) Weakness ICD Codes: R53.1 - Weakness SNOMED: 20524772 (4) CHF (congestive heart failure) ICD Codes: I50.9 - Heart failure, unspecified SNOMED: 69612511 (5) Edema ICD Codes: R60.9 - Edema, unspecified SNOMED: 922897438 (6) Anemia ICD Codes: D64.9 - Anemia, unspecified SNOMED: 066186361 Status: stable Status Narrative Discussed with Dr. Mac. Assessment/Plan fu APCT fu stool cultures, OB stool iron deficient >> venofer bowel regime push PO fu labs The patient was seen and examined at bedside and all new and available data was reviewed in the patients chart. I agree with the above findings, impression and plan. (Patient seen earlier today. Signature stamp does not reflect patient encounter time.). -Brendon Mac MD Subjective Gastrointestinal/Abdominal: Reports: other - BLE edema, poor appetite Objective Last 24 Hour Vital Signs Date Time Temp Pulse Resp B/P Pulse Ox O2 Delivery O2 Flow Rate FiO2 07/04/16 08:53 147/93 07/04/16 08:14 98.1 78 20 147/93 96 Room Air 07/04/16 04:00 98.4 71 18 121/64 95 Room Air 07/04/16 00:00 98.6 73 18 126/67 95 Room Air 07/03/16 20:00 98.0 73 16 119/62 100 Room Air 07/03/16 15:36 97.9 69 19 135/69 99 Room Air 07/03/16 12:00 97.7 76 20 147/78 100 Room Air Intake and Output 07/03/16 07/04/16 18:59 06:59 Intake Total 240 ml 380 ml Output Total 125 ml Balance 115 ml 380 ml Intake Oral 240 ml 380 ml Output Urine Total 125 ml # Voids 4 Laboratory Tests Test 07/03/16 16:30 07/04/16 06:30 07/04/16 06:50 Iron Level 33 ug/dL (59-158) L Total Iron Binding Capacity 266 ug/dL (250-400) Percent Iron Saturation 12 % (15-50) L Unsaturated Iron Binding 233 ug/dL (112-346) Ferritin 104 ng/mL (10-230) Vitamin B12 Level 1015 pg/mL (211-946) H Folate Pending Hepatitis A IgM Antibody Pending Hepatitis B Surface Antigen Pending Hepatitis B Core IgM Antibody Pending Hepatitis C Antibody Pending HIV (1&2) Antibody Rapid Negative (NEGATIVE) Urine Color Yellow Urine Appearance Clear Urine pH 6 (4.5-8.0) Urine Specific [place] 1.020 (1.005-1.035) Urine Protein 2+ (NEGATIVE) H Urine Glucose (UA) Negative (NEGATIVE) Urine Ketones 1+ (NEGATIVE) H Urine Occult Blood Negative (NEGATIVE) Urine Nitrite Negative (NEGATIVE) Urine Bilirubin Negative (NEGATIVE) Urine Urobilinogen 8 MG/DL (0.0-1.0) H Urine Leukocyte Esterase 1+ (NEGATIVE) H Urine RBC 0-2 /HPF (0 - 0) H Urine WBC 2-4 /HPF (0 - 0) Urine Squamous Epithelial Cells Few /LPF (NONE/OCC) Urine Bacteria Few /HPF (NONE) White Blood Count 3.8 K/UL (4.8-10.8) L Red Blood Count 3.27 M/UL (4.70-6.10) L Hemoglobin 10.7 G/DL (14.2-18.0) L Hematocrit 32.7 % (42.0-52.0) L Mean Corpuscular Volume 100 FL (80-99) H Mean Corpuscular Hemoglobin 32.7 PG (27.0-31.0) H Mean Corpuscular Hemoglobin Concent 32.6 G/DL (32.0-36.0) Red Cell Distribution Width 12.7 % (11.6-14.8) Platelet Count 134 K/UL (150-450) L Mean Platelet Volume 7.3 FL (6.5-10.1) Neutrophils (%) (Auto) 47.8 % (45.0-75.0) Lymphocytes (%) (Auto) 32.4 % (20.0-45.0) Monocytes (%) (Auto) 15.7 % (1.0-10.0) H Eosinophils (%) (Auto) 2.6 % (0.0-3.0) Basophils (%) (Auto) 1.4 % (0.0-2.0) Sodium Level 137 mEQ/L (135-145) Potassium Level 3.5 mEQ/L (3.4-4.9) Chloride Level 94 mEQ/L (98-107) L Carbon Dioxide Level 30 mEQ/L (20-30) Anion Gap 13 (5-15) Blood Urea Nitrogen 12 mg/dL (7-23) Creatinine 1.0 mg/dL (0.7-1.2) Estimat Glomerular Filtration Rate mL/min (>60) Glucose Level 109 mg/dL (74-106) H Calcium Level 8.5 mg/dL (8.6-10.2) L Troponin I < 0.30 ng/mL (<=0.30) Pro-B-Type Natriuretic Peptide 4366 pg/mL (0-450) H Thyroid Stimulating Hormone (TSH) 6.000 uIU/mL (0.300-4.500) Free Thyroxine 1.50 ng/dL (0.86-1.85) Free Triiodothyronine 2.2 pg/mL (2.3-4.2) L Height (Feet): 6 Height (Inches): 1.00 Weight (Pounds): 200 General Appearance: no apparent distress, alert Cardiovascular: normal rate Respiratory/Chest: normal breath sounds, no respiratory distress Abdominal Exam: normal bowel sounds, non tender, soft Jacinda Borden N.PNeto Jul 04, 2016 10:37 BRENDON MAC Jul 05, 2016 12:16
[2016-07-04 11:23] VITALS: BP 149/78
--- NOTE | 2016-07-04 14:49 | Diagnostic Imaging Report ---
Indication: Abdominal pain Technique: Continuous helical transaxial imaging of the abdomen and pelvis was obtained from the lung bases to the pubic symphysis. No intravenous contrast was administered. Coronal 2-D reformats were also obtained. Total Dose length Product (DLP): [address] Dose Index Volume (CTDIvol): 15 mGy Comparison: none Findings: There are small bilateral pleural effusions present. Associated posterior basal atelectasis noted. There is moderate tension of fecal material in the distal sigmoid rectum which is slightly distended. There is perirectal soft tissue stranding which may be a sign of a mild proctitis. Surgical clips noted in the area of the prostate gland. Asymmetry of the lower rectus muscles with relative atrophy of the left lower rectus muscle noted. No bowel obstruction or free fluid identified. Solid organs are not evaluated well on this study. There is no hydronephrosis or nephrolithiasis. There are small retroperitoneal nodes demonstrated, nonspecific in nature. (For example image 74, series 3, there is a 1 CM left para-aortic node). Small inguinal nodes are present also. No pelvic adenopathy is identified. There is narrowing of intervertebral discs and accompanying endplate osteophyte formation. Hypertrophied facet joints also demonstrated. Impression: Bilateral pleural effusions and posterior basal atelectasis. Proctitis with distention of the rectum due to fecal impaction. Status post prostatectomy. Small lymph nodes measuring less than one CM in the retroperitoneum and inguinal regions nonspecific. Consider PET CT for further evaluation especially there is a history of cancer. Spondylosis Atherosclerotic vascular disease The CT scanner at [facility] is accredited by the [employer] and the scans are performed using protocols designed to limit radiation exposure to as low as reasonably achievable to attain images of sufficient resolution adequate for diagnostic evaluation.
--- NOTE | 2016-07-04 15:05 | General Progress Note ---
Assessment/Plan Problem List: (1) Anemia ICD Codes: D64.9 - Anemia, unspecified SNOMED: 770638020 (2) CHF (congestive heart failure) ICD Codes: I50.9 - Heart failure, unspecified SNOMED: 91936470 (3) Hypothyroidism ICD Codes: E03.9 - Hypothyroidism, unspecified SNOMED: 79758914 (4) HTN (hypertension) ICD Codes: I10 - Essential (primary) hypertension SNOMED: 18478482 (5) HLD (hyperlipidemia) ICD Codes: E78.5 - Hyperlipidemia, unspecified SNOMED: 23812336 (6) Weakness ICD Codes: R53.1 - Weakness SNOMED: 29366700 (7) Poor appetite ICD Codes: R63.0 - Anorexia SNOMED: 27900751 (8) Edema ICD Codes: R60.9 - Edema, unspecified SNOMED: 816790966 (9) FTT (failure to thrive) in adult ICD Codes: R62.7 - Adult failure to thrive SNOMED: 287882255 Status: progressing Assessment/Plan afebrile reviewed chart and labs ftt treatment per gi afebrile improving Subjective ROS Limited/Unobtainable: Yes Allergies: Coded Allergies: BENAZEPRIL (Unverified Allergy, Intermediate, 03/03/16) TERAZOSIN (Verified Allergy, Intermediate, 03/03/16) Objective Last 24 Hour Vital Signs Date Time Temp Pulse Resp B/P Pulse Ox O2 Delivery O2 Flow Rate FiO2 07/04/16 11:23 97.2 71 19 149/78 96 Room Air 07/04/16 08:53 147/93 07/04/16 08:14 98.1 78 20 147/93 96 Room Air 07/04/16 04:00 98.4 71 18 121/64 95 Room Air 07/04/16 00:00 98.6 73 18 126/67 95 Room Air 07/03/16 20:00 98.0 73 16 119/62 100 Room Air 07/03/16 15:36 97.9 69 19 135/69 99 Room Air Intake and Output 07/03/16 07/04/16 18:59 06:59 Intake Total 240 ml 380 ml Output Total 125 ml Balance 115 ml 380 ml Intake Oral 240 ml 380 ml Output Urine Total 125 ml # Voids 4 Laboratory Tests 07/03/16 16:30: Iron Level 33L, Total Iron Binding Capacity 266, Percent Iron Saturation 12L, Unsaturated Iron Binding 233, Ferritin 104, Vitamin B12 Level 1015H, Folate [ Pending], Hepatitis A IgM Antibody [Pending], Hepatitis B Surface Antigen [ Pending], Hepatitis B Core IgM Antibody [Pending], Hepatitis C Antibody [Pending ], HIV (1&2) Antibody Rapid Negative 07/04/16 06:30: Urine Color Yellow, Urine Appearance Clear, Urine pH 6, Urine Specific [place] 1.020, Urine Protein 2+H, Urine Glucose (UA) Negative, Urine Ketones 1+H, Urine Occult Blood Negative, Urine Nitrite Negative, Urine Bilirubin Negative, Urine Urobilinogen 8H, Urine Leukocyte Esterase 1+H, Urine RBC 0-2H, Urine WBC 2-4, Urine Squamous Epithelial Cells Few, Urine Bacteria Few 07/04/16 06:50: White Blood Count 3.8L, Red Blood Count 3.27L, Hemoglobin 10.7L, Hematocrit 32.7L, Mean Corpuscular Volume 100H, Mean Corpuscular Hemoglobin 32.7H, Mean Corpuscular Hemoglobin Concent 32.6, Red Cell Distribution Width 12.7, Platelet Count 134L, Mean Platelet Volume 7.3, Neutrophils (%) (Auto) 47.8, Lymphocytes ( %) (Auto) 32.4, Monocytes (%) (Auto) 15.7H, Eosinophils (%) (Auto) 2.6, Basophils (%) (Auto) 1.4, Sodium Level 137, Potassium Level 3.5, Chloride Level 94L, Carbon Dioxide Level 30, Anion Gap 13, Blood Urea Nitrogen 12, Creatinine 1.0, Estimat Glomerular Filtration Rate , Glucose Level 109H, Calcium Level 8.5L , Troponin I < 0.30, Pro-B-Type Natriuretic Peptide 4366H, Thyroid Stimulating Hormone (TSH) 6.000H, Free Thyroxine 1.50, Free Triiodothyronine 2.2L Height (Feet): 6 Height (Inches): 1.00 Weight (Pounds): 200 EENT: PERRL/EOMI Neck: supple Cardiovascular: normal rate Respiratory/Chest: lungs clear Abdomen: soft Elliot Gonzalez MD Jul 04, 2016 15:05
[2016-07-04 15:56] VITALS: BP 110/77
--- NOTE | 2016-07-04 17:32 | Cardiac Electrophysiology PN ---
Assessment/Plan Assessment/Plan 1. Bilateral lower extremity edema and scrotal edema. Continue Lasix 40 mg IV daily. Echocardiogram results pending.BNP still more than 4000. 2. Hypertension. Continue Lasix and Cozaar 25 mg daily. 3. Hyperlipidemia, on Lipitor. 4. Hypothyroidism, on Synthroid. 5. Diarrhea. Stool Clostridium difficile pending. MOE RN Subjective Subjective Alert in NAD. No chest pain or SOB. Objective Last 24 Hour Vital Signs Date Time Temp Pulse Resp B/P Pulse Ox O2 Delivery O2 Flow Rate FiO2 07/04/16 15:56 97.7 68 16 110/77 100 Room Air 07/04/16 11:23 97.2 71 19 149/78 96 Room Air 07/04/16 08:53 147/93 07/04/16 08:14 98.1 78 20 147/93 96 Room Air 07/04/16 04:00 98.4 71 18 121/64 95 Room Air 07/04/16 00:00 98.6 73 18 126/67 95 Room Air 07/03/16 20:00 98.0 73 16 119/62 100 Room Air Intake and Output 07/03/16 07/04/16 19:00 07:00 Intake Total 240 ml 380 ml Output Total 125 ml Balance 115 ml 380 ml Intake Oral 240 ml 380 ml Output Urine Total 125 ml # Voids 4 Laboratory Tests Test 07/04/16 06:30 07/04/16 06:50 Urine Color Yellow Urine Appearance Clear Urine pH 6 (4.5-8.0) Urine Specific [place] 1.020 (1.005-1.035) Urine Protein 2+ (NEGATIVE) H Urine Glucose (UA) Negative (NEGATIVE) Urine Ketones 1+ (NEGATIVE) H Urine Occult Blood Negative (NEGATIVE) Urine Nitrite Negative (NEGATIVE) Urine Bilirubin Negative (NEGATIVE) Urine Urobilinogen 8 MG/DL (0.0-1.0) H Urine Leukocyte Esterase 1+ (NEGATIVE) H Urine RBC 0-2 /HPF (0 - 0) H Urine WBC 2-4 /HPF (0 - 0) Urine Squamous Epithelial Cells Few /LPF (NONE/OCC) Urine Bacteria Few /HPF (NONE) White Blood Count 3.8 K/UL (4.8-10.8) L Red Blood Count 3.27 M/UL (4.70-6.10) L Hemoglobin 10.7 G/DL (14.2-18.0) L Hematocrit 32.7 % (42.0-52.0) L Mean Corpuscular Volume 100 FL (80-99) H Mean Corpuscular Hemoglobin 32.7 PG (27.0-31.0) H Mean Corpuscular Hemoglobin Concent 32.6 G/DL (32.0-36.0) Red Cell Distribution Width 12.7 % (11.6-14.8) Platelet Count 134 K/UL (150-450) L Mean Platelet Volume 7.3 FL (6.5-10.1) Neutrophils (%) (Auto) 47.8 % (45.0-75.0) Lymphocytes (%) (Auto) 32.4 % (20.0-45.0) Monocytes (%) (Auto) 15.7 % (1.0-10.0) H Eosinophils (%) (Auto) 2.6 % (0.0-3.0) Basophils (%) (Auto) 1.4 % (0.0-2.0) Sodium Level 137 mEQ/L (135-145) Potassium Level 3.5 mEQ/L (3.4-4.9) Chloride Level 94 mEQ/L (98-107) L Carbon Dioxide Level 30 mEQ/L (20-30) Anion Gap 13 (5-15) Blood Urea Nitrogen 12 mg/dL (7-23) Creatinine 1.0 mg/dL (0.7-1.2) Estimat Glomerular Filtration Rate mL/min (>60) Glucose Level 109 mg/dL (74-106) H Calcium Level 8.5 mg/dL (8.6-10.2) L Troponin I < 0.30 ng/mL (<=0.30) Pro-B-Type Natriuretic Peptide 4366 pg/mL (0-450) H Thyroid Stimulating Hormone (TSH) 6.000 uIU/mL (0.300-4.500) Free Thyroxine 1.50 ng/dL (0.86-1.85) Free Triiodothyronine 2.2 pg/mL (2.3-4.2) L Microbiology Date/Time Source Procedure Growth Status 07/02/16 15:31 Nasal Nares MRSA Culture - Final NO METHICILLIN RESISTANT STAPH AUREUS... Complete 07/02/16 15:31 Rectum VRE Culture - Final NO VANCOMYCIN RESISTANT ENTEROCOCCUS ... Complete Objective NECK: Shows mild JVD. LUNGS: Decreased breath sounds. CARDIOVASCULAR: Shows regular S1 and S2 with no gallop or murmur. ABDOMEN: Soft. EXTREMITIES: A 2+ pitting edema as well as scrotal edema. ORTIZ ZARAGOZA Jul 04, 2016 17:32
[2016-07-04 19:42] VITALS: BP 140/55
[2016-07-05] VITALS: BP 141/74
[2016-07-05 04:00] VITALS: BP 144/91
--- NOTE | 2016-07-05 05:38 | General Progress Note ---
Assessment/Plan Assessment/Plan ASSESSMENT: 1. 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 Await US ABD 2. 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 3. Thrombocytopenia, potentially secondary to infection above 100,000 and stable. 4. Anemia, decreased hemoglobin and hematocrit, rule out gastrointestinal bleed. 5. Coagulopathy, potentially secondary to either malnutrition and/or liver disease. 6. Decreased H/H likely 2/2 hemodilution 7. Pneumonia. 8. Chronic cough. 9. Hypertension. 10. Small lymph nodes measuring less than one CM in the retroperitoneum and inguinal regions nonspecific. RECOMMENDATIONS: 1. Monitor counts. 2. Transfuse as needed. 3. Maintain hemoglobin level >7.5. 4. Anemia workup reviewed - ferritin is wnl, tibc nml as well thus is not iron deficient 5. US Abd pending 6. DVT prophylaxis with heparin sq 7. F/U on cards recs 8. GI prophylaxis as needed. 9. ok to continue po iron and vitamin C. 10. Nephrology followup. 11. Discussed with staff. Thank you, Reilly Molina MD Subjective Constitutional: Reports: no symptoms HEENT: Reports: no symptoms Cardiovascular: Reports: no symptoms Respiratory: Reports: no symptoms Gastrointestinal/Abdominal: Reports: no symptoms Genitourinary: Reports: no symptoms Neurologic/Psychiatric: Reports: no symptoms Endocrine: Reports: no symptoms Hematologic/Lymphatic: Reports: anemia Allergies: Coded Allergies: BENAZEPRIL (Unverified Allergy, Intermediate, 03/03/16) TERAZOSIN (Verified Allergy, Intermediate, 03/03/16) Subjective no events overnight, is not bleeding Objective Last 24 Hour Vital Signs Date Time Temp Pulse Resp B/P Pulse Ox O2 Delivery O2 Flow Rate FiO2 07/05/16 00:00 98.1 79 18 141/74 99 Room Air 07/04/16 19:42 98.1 76 18 140/55 100 Room Air 07/04/16 15:56 97.7 68 16 110/77 100 Room Air 07/04/16 11:23 97.2 71 19 149/78 96 Room Air 07/04/16 08:53 147/93 07/04/16 08:14 98.1 78 20 147/93 96 Room Air Intake and Output 07/04/16 07/05/16 19:00 07:00 Intake Total 500 ml 380 ml Output Total 750 ml Balance -250 ml 380 ml Intake Oral 500 ml 380 ml Output Urine Total 750 ml Laboratory Tests 07/04/16 06:30: Urine Color Yellow, Urine Appearance Clear, Urine pH 6, Urine Specific [place] 1.020, Urine Protein 2+H, Urine Glucose (UA) Negative, Urine Ketones 1+H, Urine Occult Blood Negative, Urine Nitrite Negative, Urine Bilirubin Negative, Urine Urobilinogen 8H, Urine Leukocyte Esterase 1+H, Urine RBC 0-2H, Urine WBC 2-4, Urine Squamous Epithelial Cells Few, Urine Bacteria Few 07/04/16 06:50: White Blood Count 3.8L, Red Blood Count 3.27L, Hemoglobin 10.7L, Hematocrit 32.7L, Mean Corpuscular Volume 100H, Mean Corpuscular Hemoglobin 32.7H, Mean Corpuscular Hemoglobin Concent 32.6, Red Cell Distribution Width 12.7, Platelet Count 134L, Mean Platelet Volume 7.3, Neutrophils (%) (Auto) 47.8, Lymphocytes ( %) (Auto) 32.4, Monocytes (%) (Auto) 15.7H, Eosinophils (%) (Auto) 2.6, Basophils (%) (Auto) 1.4, Sodium Level 137, Potassium Level 3.5, Chloride Level 94L, Carbon Dioxide Level 30, Anion Gap 13, Blood Urea Nitrogen 12, Creatinine 1.0, Estimat Glomerular Filtration Rate , Glucose Level 109H, Calcium Level 8.5L , Troponin I < 0.30, Pro-B-Type Natriuretic Peptide 4366H, Thyroid Stimulating Hormone (TSH) 6.000H, Free Thyroxine 1.50, Free Triiodothyronine 2.2L Height (Feet): 6 Height (Inches): 1.00 Weight (Pounds): 200 General Appearance: no apparent distress EENT: TMs normal Neck: supple Cardiovascular: regular rhythm Respiratory/Chest: lungs clear Abdomen: non tender Extremities: non-tender Edema: 1+ Leg (L), 1+ Leg (R) Edema: trace edema Neurologic: alert Skin: warm/dry Reilly Molina Jul 05, 2016 05:38
[2016-07-05] MEDS: Levothyroxine 25mcg tab ORAL SCH (05:42)
[2016-07-05 07:10] LABS: BASOPHILS % (AUTO) 1.3 % (0.0-2.0); EOSINOPHILS % (AUTO) 1.4 % (0.0-3.0); MEAN CORPUSCULAR HEMOGLOBIN 32.6 PG (27.0-31.0); MEAN CORPUSCULAR HGB CONC 32.1 G/DL (32.0-36.0); MEAN CORPUSCULAR VOLUME 102 FL (80-99); MEAN PLATELET VOLUME 7.3 FL (6.5-10.1); MONOCYTES % (AUTO) 15.4 % (1.0-10.0); PLATELET COUNT 146 K/UL (150-450); RED BLOOD COUNT 3.37 M/UL (4.70-6.10); RED CELL DISTRIBUTION WIDTH 12.8 % (11.6-14.8); WHITE BLOOD COUNT 5.1 K/UL (4.8-10.8)
[2016-07-05 07:22] LABS: ANION GAP 11 (5-15); CALCIUM 8.5 mg/dL (8.6-10.2); CARBON DIOXIDE 30 mEQ/L (20-30); CHLORIDE 93 mEQ/L (98-107); HEMOLYSIS 1; MAGNESIUM 1.6 mg/dL (1.7-2.5); PHOSPHORUS 3.5 mg/dL (2.5-4.8); SODIUM 134 mEQ/L (135-145)
[2016-07-05 07:43] LABS: FOLIC ACID 12.6 ng/mL (3.1-17.5)
[2016-07-05 08:00] VITALS: BP 126/68
--- NOTE | 2016-07-05 08:35 | Cardiology Report ---
APPROVED REPORT EKG Measurement Heart [id number] Sinus rhythm with 1st degree AV block Low voltage QRS Nonspecific T wave abnormality Abnormal ECG
[2016-07-05] MEDS: Heparin 5000 units/ml inj SUBQ SCH ×2 (08:40→20:11)
[2016-07-05] MEDS: Ascorbic Acid 500mg tab ORAL SCH ×2 (08:45→18:05)
[2016-07-05] MEDS: Losartan 25mg tab ORAL SCH (08:45)
[2016-07-05] MEDS: Docusate 250mg cap ORAL SCH (09:00)
[2016-07-05] MEDS: Miconazole 2% Cream 30gm TOPIC SCH ×2 (10:57→18:05)
--- NOTE | 2016-07-05 11:27 | Nephrology Progress Note ---
Assessment/Plan Problem List: (1) Anemia (2) Leukopenia (3) Weakness (4) CHF (congestive heart failure) (5) Pancytopenia Objective Objective Last 24 Hour Vital Signs Date Time Temp Pulse Resp B/P Pulse Ox O2 Delivery O2 Flow Rate FiO2 07/05/16 08:45 126/68 07/05/16 08:00 98.1 73 18 126/68 99 Room Air 07/05/16 04:00 98.2 79 18 144/91 98 Room Air 07/05/16 00:00 98.1 79 18 141/74 99 Room Air 07/04/16 19:42 98.1 76 18 140/55 100 Room Air 07/04/16 15:56 97.7 68 16 110/77 100 Room Air Intake and Output 07/04/16 07/05/16 19:00 07:00 Intake Total 500 ml 620 ml Output Total 750 ml 200 ml Balance -250 ml 420 ml Intake Oral 500 ml 620 ml Output Urine Total 750 ml 200 ml # Bowel Movements 2 Laboratory Tests 07/05/16 06:25: White Blood Count 5.1, Red Blood Count 3.37L, Hemoglobin 11.0L, Hematocrit 34.3L , Mean Corpuscular Volume 102H, Mean Corpuscular Hemoglobin 32.6H, Mean Corpuscular Hemoglobin Concent 32.1, Red Cell Distribution Width 12.8, Platelet Count 146L, Mean Platelet Volume 7.3, Neutrophils (%) (Auto) 59.0, Lymphocytes ( %) (Auto) 23.0, Monocytes (%) (Auto) 15.4H, Eosinophils (%) (Auto) 1.4, Basophils (%) (Auto) 1.3, Sodium Level 134L, Potassium Level 4.0, Chloride Level 93L, Carbon Dioxide Level 30, Anion Gap 11, Blood Urea Nitrogen 14, Creatinine 1.0, Estimat Glomerular Filtration Rate , Glucose Level 117H, Calcium Level 8.5L, Phosphorus Level 3.5, Magnesium Level 1.6L Height (Feet): 6 Height (Inches): 1.00 Weight (Pounds): 200 Kayla Castañeda N.P. Jul 05, 2016 11:27
[2016-07-05 12:00] VITALS: BP 153/85
--- NOTE | 2016-07-05 13:33 | GI Progress Note ---
Assessment/Plan Problems: (1) Poor appetite ICD Codes: R63.0 - Anorexia SNOMED: 19354166 (2) FTT (failure to thrive) in adult ICD Codes: R62.7 - Adult failure to thrive SNOMED: 129443178 (3) Weakness ICD Codes: R53.1 - Weakness SNOMED: 11307467 (4) CHF (congestive heart failure) ICD Codes: I50.9 - Heart failure, unspecified SNOMED: 95363449 (5) Edema ICD Codes: R60.9 - Edema, unspecified SNOMED: 746536592 (6) Anemia ICD Codes: D64.9 - Anemia, unspecified SNOMED: 498727116 (7) Fecal impaction in rectum ICD Codes: K56.41 - Fecal impaction SNOMED: 50952685 Status: stable Status Narrative Discussed with Dr. Mac. Assessment/Plan fu APCT >> fecal impaction >> noted pt having multiple watery stools - ordered mineral oil enema cdiff negative OB stool uncollected hep panel negative iron deficient >> venofer bowel regime push PO fu labs Subjective Gastrointestinal/Abdominal: Reports: diarrhea Objective Last 24 Hour Vital Signs Date Time Temp Pulse Resp B/P Pulse Ox O2 Delivery O2 Flow Rate FiO2 07/05/16 12:00 97.7 71 22 153/85 98 Room Air 07/05/16 08:45 126/68 07/05/16 08:00 98.1 73 18 126/68 99 Room Air 07/05/16 04:00 98.2 79 18 144/91 98 Room Air 07/05/16 00:00 98.1 79 18 141/74 99 Room Air 07/04/16 19:42 98.1 76 18 140/55 100 Room Air 07/04/16 15:56 97.7 68 16 110/77 100 Room Air Intake and Output 07/04/16 07/05/16 19:00 07:00 Intake Total 500 ml 620 ml Output Total 750 ml 200 ml Balance -250 ml 420 ml Intake Oral 500 ml 620 ml Output Urine Total 750 ml 200 ml # Bowel Movements 2 Laboratory Tests Test 07/05/16 06:25 White Blood Count 5.1 K/UL (4.8-10.8) Red Blood Count 3.37 M/UL (4.70-6.10) L Hemoglobin 11.0 G/DL (14.2-18.0) L Hematocrit 34.3 % (42.0-52.0) L Mean Corpuscular Volume 102 FL (80-99) H Mean Corpuscular Hemoglobin 32.6 PG (27.0-31.0) H Mean Corpuscular Hemoglobin Concent 32.1 G/DL (32.0-36.0) Red Cell Distribution Width 12.8 % (11.6-14.8) Platelet Count 146 K/UL (150-450) L Mean Platelet Volume 7.3 FL (6.5-10.1) Neutrophils (%) (Auto) 59.0 % (45.0-75.0) Lymphocytes (%) (Auto) 23.0 % (20.0-45.0) Monocytes (%) (Auto) 15.4 % (1.0-10.0) H Eosinophils (%) (Auto) 1.4 % (0.0-3.0) Basophils (%) (Auto) 1.3 % (0.0-2.0) Sodium Level 134 mEQ/L (135-145) L Potassium Level 4.0 mEQ/L (3.4-4.9) Chloride Level 93 mEQ/L (98-107) L Carbon Dioxide Level 30 mEQ/L (20-30) Anion Gap 11 (5-15) Blood Urea Nitrogen 14 mg/dL (7-23) Creatinine 1.0 mg/dL (0.7-1.2) Estimat Glomerular Filtration Rate mL/min (>60) Glucose Level 117 mg/dL (74-106) H Calcium Level 8.5 mg/dL (8.6-10.2) L Phosphorus Level 3.5 mg/dL (2.5-4.8) Magnesium Level 1.6 mg/dL (1.7-2.5) L Microbiology Date/Time Source Procedure Growth Status 07/04/16 21:00 Stool Clostridium difficile Toxin Assay - Final Complete Height (Feet): 6 Height (Inches): 1.00 Weight (Pounds): 200 General Appearance: alert Cardiovascular: normal rate Respiratory/Chest: normal breath sounds, no respiratory distress Abdominal Exam: normal bowel sounds, non tender, soft Extremities: non-tender, other - BLE edema Objective Procedure: CT Abdomen Pelvis WO Contrast Indication: Abdominal pain Impression: Bilateral pleural effusions and posterior basal atelectasis. Proctitis with distention of the rectum due to fecal impaction. Status post prostatectomy. Small lymph nodes measuring less than one CM in the retroperitoneum and inguinal regions nonspecific. Consider PET CT for further evaluation especially there is a history of cancer. Spondylosis Atherosclerotic vascular disease Jacinda Borden N.P. Jul 05, 2016 13:33
[2016-07-05] MEDS ORDERED: Fleet's Enema 133ml RECTAL ONE (14:00)
--- NOTE | 2016-07-05 14:48 | General Progress Note ---
Assessment/Plan Problem List: (1) Anemia ICD Codes: D64.9 - Anemia, unspecified SNOMED: 433333781 (2) CHF (congestive heart failure) ICD Codes: I50.9 - Heart failure, unspecified SNOMED: 41888634 (3) Hypothyroidism ICD Codes: E03.9 - Hypothyroidism, unspecified SNOMED: 18319400 (4) HTN (hypertension) ICD Codes: I10 - Essential (primary) hypertension SNOMED: 69408251 (5) HLD (hyperlipidemia) ICD Codes: E78.5 - Hyperlipidemia, unspecified SNOMED: 39824165 (6) Weakness ICD Codes: R53.1 - Weakness SNOMED: 77405810 (7) Poor appetite ICD Codes: R63.0 - Anorexia SNOMED: 52680428 (8) Edema ICD Codes: R60.9 - Edema, unspecified SNOMED: 813519018 (9) FTT (failure to thrive) in adult ICD Codes: R62.7 - Adult failure to thrive SNOMED: 674587497 Status: progressing Assessment/Plan vitals stable ftt s\p cva reviewed chart and labs Subjective ROS Limited/Unobtainable: Yes Constitutional: Reports: no symptoms Allergies: Coded Allergies: BENAZEPRIL (Unverified Allergy, Intermediate, 03/03/16) TERAZOSIN (Verified Allergy, Intermediate, 03/03/16) Objective Last 24 Hour Vital Signs Date Time Temp Pulse Resp B/P Pulse Ox O2 Delivery O2 Flow Rate FiO2 07/05/16 12:00 97.7 71 22 153/85 98 Room Air 07/05/16 08:45 126/68 07/05/16 08:00 98.1 73 18 126/68 99 Room Air 07/05/16 04:00 98.2 79 18 144/91 98 Room Air 07/05/16 00:00 98.1 79 18 141/74 99 Room Air 07/04/16 19:42 98.1 76 18 140/55 100 Room Air 07/04/16 15:56 97.7 68 16 110/77 100 Room Air Intake and Output 07/04/16 07/05/16 19:00 07:00 Intake Total 500 ml 620 ml Output Total 750 ml 200 ml Balance -250 ml 420 ml Intake Oral 500 ml 620 ml Output Urine Total 750 ml 200 ml # Bowel Movements 2 Laboratory Tests 07/05/16 06:25: White Blood Count 5.1, Red Blood Count 3.37L, Hemoglobin 11.0L, Hematocrit 34.3L , Mean Corpuscular Volume 102H, Mean Corpuscular Hemoglobin 32.6H, Mean Corpuscular Hemoglobin Concent 32.1, Red Cell Distribution Width 12.8, Platelet Count 146L, Mean Platelet Volume 7.3, Neutrophils (%) (Auto) 59.0, Lymphocytes ( %) (Auto) 23.0, Monocytes (%) (Auto) 15.4H, Eosinophils (%) (Auto) 1.4, Basophils (%) (Auto) 1.3, Sodium Level 134L, Potassium Level 4.0, Chloride Level 93L, Carbon Dioxide Level 30, Anion Gap 11, Blood Urea Nitrogen 14, Creatinine 1.0, Estimat Glomerular Filtration Rate , Glucose Level 117H, Calcium Level 8.5L, Phosphorus Level 3.5, Magnesium Level 1.6L Height (Feet): 6 Height (Inches): 1.00 Weight (Pounds): 200 EENT: PERRL/EOMI Neck: supple Cardiovascular: normal rate Respiratory/Chest: lungs clear Abdomen: soft Elliot Gonzalez MD Jul 05, 2016 14:48
--- NOTE | 2016-07-05 15:34 | Cardiology Report ---
APPROVED REPORT EXAM: Two-dimensional and M-mode echocardiogram with Doppler and color Doppler. INDICATION Congestive Heart Failure M-Mode DIMENSIONS IVSd1.5 (0.7-1.1cm)Left Atrium (MM)3.7 (1.6-4.0cm) LVDd5.1 (3.5-5.6cm)Aortic Root3.1 (2.0-3.7cm) PWd1.5 (0.7-1.1cm)Aortic Cusp Exc.1.5 (1.5-2.0cm) LVDs4.3 (2.5-4.0cm) PWs2.2 cm Normal left ventricular chamber size. MODERATE GLOBAL SYSTOLIC DYSFUNCTION. Left ventricular ejection fraction estimated to be 35-40%. Concentric left ventricular hypertrophy. Left atrium and right atrium are in upper normal limits. All other cardiac chamber sizes are within normal limits. Mild focal aortic valve sclerosis with adequate cusp excursion Mildly thickened mitral valve leaflets with normal excursion. Mild mitral annulus and aortic root calcification. Pulmonic valve visualized. Normal tricuspid valve structure. IVC dilated at 2.3cm with physiologic collapse. A color flow and spectral Doppler study was performed and revealed: Trace aortic regurgitation. Mild mitral regurgitation. Mitral inflow velocities indicates normal left ventricular diastolic function. Trace tricuspid regurgitation. Tricuspid systolic velocities suggests peak right ventricular systolic pressure of 33 mmHg. Pulmonic regurgitation present.
--- NOTE | 2016-07-05 15:57 | Cardiac Electrophysiology PN ---
Assessment/Plan Status Narrative Normal left ventricular chamber size. MODERATE GLOBAL SYSTOLIC DYSFUNCTION. Left ventricular ejection fraction estimated to be 35-40%. Concentric left ventricular hypertrophy. Left atrium and right atrium are in upper normal limits. All other cardiac chamber sizes are within normal limits. Mild focal aortic valve sclerosis with adequate cusp excursion Mildly thickened mitral valve leaflets with normal excursion. Mild mitral annulus and aortic root calcification. Pulmonic valve visualized. Normal tricuspid valve structure. IVC dilated at 2.3cm with physiologic collapse. Assessment/Plan 1. Bilateral lower extremity edema and scrotal edema. Continue Lasix 40 mg IV daily. Echocardiogram EF 35%.BNP still more than 4000. 2. Hypertension. Continue Lasix and Cozaar 25 mg daily. 3. Hyperlipidemia, on Lipitor. 4. Hypothyroidism, on Synthroid. 5. Diarrhea. Stool Clostridium difficile 6. Fecal impaction per Dr Mac. MOE RN Subjective Subjective Alert in NAD. No chest pain or SOB.Complains of cough today. Objective Last 24 Hour Vital Signs Date Time Temp Pulse Resp B/P Pulse Ox O2 Delivery O2 Flow Rate FiO2 07/05/16 12:00 97.7 71 22 153/85 98 Room Air 07/05/16 08:45 126/68 07/05/16 08:00 98.1 73 18 126/68 99 Room Air 07/05/16 04:00 98.2 79 18 144/91 98 Room Air 07/05/16 00:00 98.1 79 18 141/74 99 Room Air 07/04/16 19:42 98.1 76 18 140/55 100 Room Air 07/04/16 15:56 97.7 68 16 110/77 100 Room Air Intake and Output 07/04/16 07/05/16 19:00 07:00 Intake Total 500 ml 620 ml Output Total 750 ml 200 ml Balance -250 ml 420 ml Intake Oral 500 ml 620 ml Output Urine Total 750 ml 200 ml # Bowel Movements 2 Laboratory Tests Test 07/05/16 06:25 White Blood Count 5.1 K/UL (4.8-10.8) Red Blood Count 3.37 M/UL (4.70-6.10) L Hemoglobin 11.0 G/DL (14.2-18.0) L Hematocrit 34.3 % (42.0-52.0) L Mean Corpuscular Volume 102 FL (80-99) H Mean Corpuscular Hemoglobin 32.6 PG (27.0-31.0) H Mean Corpuscular Hemoglobin Concent 32.1 G/DL (32.0-36.0) Red Cell Distribution Width 12.8 % (11.6-14.8) Platelet Count 146 K/UL (150-450) L Mean Platelet Volume 7.3 FL (6.5-10.1) Neutrophils (%) (Auto) 59.0 % (45.0-75.0) Lymphocytes (%) (Auto) 23.0 % (20.0-45.0) Monocytes (%) (Auto) 15.4 % (1.0-10.0) H Eosinophils (%) (Auto) 1.4 % (0.0-3.0) Basophils (%) (Auto) 1.3 % (0.0-2.0) Sodium Level 134 mEQ/L (135-145) L Potassium Level 4.0 mEQ/L (3.4-4.9) Chloride Level 93 mEQ/L (98-107) L Carbon Dioxide Level 30 mEQ/L (20-30) Anion Gap 11 (5-15) Blood Urea Nitrogen 14 mg/dL (7-23) Creatinine 1.0 mg/dL (0.7-1.2) Estimat Glomerular Filtration Rate mL/min (>60) Glucose Level 117 mg/dL (74-106) H Calcium Level 8.5 mg/dL (8.6-10.2) L Phosphorus Level 3.5 mg/dL (2.5-4.8) Magnesium Level 1.6 mg/dL (1.7-2.5) L Microbiology Date/Time Source Procedure Growth Status 07/04/16 21:00 Stool Clostridium difficile Toxin Assay - Final Complete Objective NECK: Shows mild JVD. LUNGS: Decreased breath sounds. CARDIOVASCULAR: Shows regular S1 and S2 with no gallop or murmur. ABDOMEN: Soft. EXTREMITIES: A 2+ pitting edema as well as scrotal edema. ORTIZ ZARAGOZA Jul 05, 2016 15:57
[2016-07-05 16:04] VITALS: BP 125/65
[2016-07-05] MEDS ORDERED: Tubing IV Secondary IV ONE (17:15)
[2016-07-05] MEDS ORDERED: NS 275ml ONE (17:15)
[2016-07-05 20:00] VITALS: BP 133/67
[2016-07-05] MEDS: Acetaminophen 500mg (ES) tab ORAL PRN (20:29)
[2016-07-06] VITALS: BP 143/72
[2016-07-06 04:00] VITALS: BP 125/71
[2016-07-06] MEDS: Levothyroxine 25mcg tab ORAL SCH (05:49)
[2016-07-06 07:03] LABS: BASOPHILS % (AUTO) 0.9 % (0.0-2.0); EOSINOPHILS % (AUTO) 1.4 % (0.0-3.0); LYMPHOCYTES % (AUTO) 28.8 % (20.0-45.0); MEAN CORPUSCULAR HEMOGLOBIN 33.1 PG (27.0-31.0); MEAN CORPUSCULAR HGB CONC 32.6 G/DL (32.0-36.0); MEAN CORPUSCULAR VOLUME 102 FL (80-99); MEAN PLATELET VOLUME 7.7 FL (6.5-10.1); MONOCYTES % (AUTO) 16.2 % (1.0-10.0); NEUTROPHILS % (AUTO) 52.8 % (45.0-75.0); PLATELET COUNT 140 K/UL (150-450); RED BLOOD COUNT 3.26 M/UL (4.70-6.10); RED CELL DISTRIBUTION WIDTH 12.4 % (11.6-14.8); WHITE BLOOD COUNT 4.6 K/UL (4.8-10.8)
[2016-07-06 07:16] LABS: ANION GAP 9 (5-15); CALCIUM 8.5 mg/dL (8.6-10.2); CARBON DIOXIDE 31 mEQ/L (20-30); CHLORIDE 95 mEQ/L (98-107); CREATININE 0.9 mg/dL (0.7-1.2); HEMOLYSIS 1; POTASSIUM 3.8 mEQ/L (3.4-4.9); SODIUM 135 mEQ/L (135-145)
[2016-07-06 08:08] VITALS: BP 103/56
[2016-07-06] MEDS: Docusate 250mg cap ORAL SCH (09:00)
[2016-07-06] MEDS: Losartan 25mg tab ORAL SCH (09:00)
[2016-07-06] MEDS: Heparin 5000 units/ml inj SUBQ SCH ×2 (09:00→21:00)
[2016-07-06] MEDS: Miconazole 2% Cream 30gm TOPIC SCH ×2 (09:12→18:27)
[2016-07-06] MEDS: Ascorbic Acid 500mg tab ORAL SCH ×2 (09:12→18:27)
--- NOTE | 2016-07-06 11:41 | GI Progress Note ---
Assessment/Plan Problems: (1) Poor appetite ICD Codes: R63.0 - Anorexia SNOMED: 27155805 (2) FTT (failure to thrive) in adult ICD Codes: R62.7 - Adult failure to thrive SNOMED: 887336145 (3) Weakness ICD Codes: R53.1 - Weakness SNOMED: 55194108 (4) CHF (congestive heart failure) ICD Codes: I50.9 - Heart failure, unspecified SNOMED: 22741204 (5) Edema ICD Codes: R60.9 - Edema, unspecified SNOMED: 715267504 (6) Anemia ICD Codes: D64.9 - Anemia, unspecified SNOMED: 344879610 (7) Fecal impaction in rectum ICD Codes: K56.41 - Fecal impaction SNOMED: 32350920 Status: stable Status Narrative Discussed with Dr. Mac. Assessment/Plan ok for DC per GI standpoint APCT >> fecal impaction - mineral oil enema, massive BM reported yesterday by PT cdiff negative OB stool negative hep panel negative iron deficient >> venofer bowel regime push PO PT eval fu labs Subjective Gastrointestinal/Abdominal: Reports: no symptoms Subjective Pt had BM last night. Objective Last 24 Hour Vital Signs Date Time Temp Pulse Resp B/P Pulse Ox O2 Delivery O2 Flow Rate FiO2 07/06/16 09:00 103/56 07/06/16 08:08 98.1 72 21 103/56 95 Room Air 07/06/16 04:00 97.9 69 20 125/71 97 Room Air 07/06/16 00:00 98.2 79 20 143/72 97 Room Air 07/05/16 20:00 97.3 81 20 133/67 100 Room Air 07/05/16 16:04 98.1 75 14 125/65 100 Room Air 07/05/16 12:00 97.7 71 22 153/85 98 Room Air Intake and Output 07/05/16 07/06/16 19:00 07:00 Intake Total 200 ml 560 ml Output Total 750 ml 200 ml Balance -550 ml 360 ml Intake Oral 360 ml IV Total 200 ml 200 ml Output Urine Total 750 ml 200 ml # Voids 1 # Bowel Movements 1 Laboratory Tests Test 07/06/16 05:20 07/06/16 06:15 Stool Occult Blood Negative (NEGATIVE) White Blood Count 4.6 K/UL (4.8-10.8) L Red Blood Count 3.26 M/UL (4.70-6.10) L Hemoglobin 10.8 G/DL (14.2-18.0) L Hematocrit 33.1 % (42.0-52.0) L Mean Corpuscular Volume 102 FL (80-99) H Mean Corpuscular Hemoglobin 33.1 PG (27.0-31.0) H Mean Corpuscular Hemoglobin Concent 32.6 G/DL (32.0-36.0) Red Cell Distribution Width 12.4 % (11.6-14.8) Platelet Count 140 K/UL (150-450) L Mean Platelet Volume 7.7 FL (6.5-10.1) Neutrophils (%) (Auto) 52.8 % (45.0-75.0) Lymphocytes (%) (Auto) 28.8 % (20.0-45.0) Monocytes (%) (Auto) 16.2 % (1.0-10.0) H Eosinophils (%) (Auto) 1.4 % (0.0-3.0) Basophils (%) (Auto) 0.9 % (0.0-2.0) Sodium Level 135 mEQ/L (135-145) Potassium Level 3.8 mEQ/L (3.4-4.9) Chloride Level 95 mEQ/L (98-107) L Carbon Dioxide Level 31 mEQ/L (20-30) H Anion Gap 9 (5-15) Blood Urea Nitrogen 13 mg/dL (7-23) Creatinine 0.9 mg/dL (0.7-1.2) Estimat Glomerular Filtration Rate mL/min (>60) Glucose Level 115 mg/dL (74-106) H Calcium Level 8.5 mg/dL (8.6-10.2) L Magnesium Level 2.0 mg/dL (1.7-2.5) Height (Feet): 6 Height (Inches): 1.00 Weight (Pounds): 200 General Appearance: no apparent distress, alert Cardiovascular: normal rate Respiratory/Chest: normal breath sounds Abdominal Exam: normal bowel sounds, non tender, soft Objective Procedure: CT Abdomen Pelvis WO Contrast Indication: Abdominal pain Impression: Bilateral pleural effusions and posterior basal atelectasis. Proctitis with distention of the rectum due to fecal impaction. Status post prostatectomy. Small lymph nodes measuring less than one CM in the retroperitoneum and inguinal regions nonspecific. Consider PET CT for further evaluation especially there is a history of cancer. Spondylosis Atherosclerotic vascular disease Jacinda Borden N.P. Jul 06, 2016 11:41
[2016-07-06 11:44] VITALS: BP 122/72
--- NOTE | 2016-07-06 12:50 | General Progress Note ---
Assessment/Plan Problem List: (1) Anemia ICD Codes: D64.9 - Anemia, unspecified SNOMED: 622861523 (2) CHF (congestive heart failure) ICD Codes: I50.9 - Heart failure, unspecified SNOMED: 84750137 (3) Hypothyroidism ICD Codes: E03.9 - Hypothyroidism, unspecified SNOMED: 45333236 (4) HTN (hypertension) ICD Codes: I10 - Essential (primary) hypertension SNOMED: 58197991 (5) HLD (hyperlipidemia) ICD Codes: E78.5 - Hyperlipidemia, unspecified SNOMED: 17659901 (6) Weakness ICD Codes: R53.1 - Weakness SNOMED: 11994792 (7) Poor appetite ICD Codes: R63.0 - Anorexia SNOMED: 09770738 (8) Edema ICD Codes: R60.9 - Edema, unspecified SNOMED: 112712382 (9) FTT (failure to thrive) in adult ICD Codes: R62.7 - Adult failure to thrive SNOMED: 645909305 Status: progressing Assessment/Plan afebrile ftt reviewed chart and labs weakness anorexia edema hemp paresis Subjective ROS Limited/Unobtainable: Yes Constitutional: Reports: no symptoms Allergies: Coded Allergies: BENAZEPRIL (Unverified Allergy, Intermediate, 03/03/16) TERAZOSIN (Verified Allergy, Intermediate, 03/03/16) Objective Last 24 Hour Vital Signs Date Time Temp Pulse Resp B/P Pulse Ox O2 Delivery O2 Flow Rate FiO2 07/06/16 11:44 97.5 77 20 122/72 99 Room Air 07/06/16 09:00 103/56 07/06/16 08:08 98.1 72 21 103/56 95 Room Air 07/06/16 04:00 97.9 69 20 125/71 97 Room Air 07/06/16 00:00 98.2 79 20 143/72 97 Room Air 07/05/16 20:00 97.3 81 20 133/67 100 Room Air 07/05/16 16:04 98.1 75 14 125/65 100 Room Air Intake and Output 07/05/16 07/06/16 19:00 07:00 Intake Total 200 ml 560 ml Output Total 750 ml 200 ml Balance -550 ml 360 ml Intake Oral 360 ml IV Total 200 ml 200 ml Output Urine Total 750 ml 200 ml # Voids 1 # Bowel Movements 1 Laboratory Tests 07/06/16 05:20: Stool Occult Blood Negative 07/06/16 06:15: White Blood Count 4.6L, Red Blood Count 3.26L, Hemoglobin 10.8L, Hematocrit 33.1L, Mean Corpuscular Volume 102H, Mean Corpuscular Hemoglobin 33.1H, Mean Corpuscular Hemoglobin Concent 32.6, Red Cell Distribution Width 12.4, Platelet Count 140L, Mean Platelet Volume 7.7, Neutrophils (%) (Auto) 52.8, Lymphocytes ( %) (Auto) 28.8, Monocytes (%) (Auto) 16.2H, Eosinophils (%) (Auto) 1.4, Basophils (%) (Auto) 0.9, Sodium Level 135, Potassium Level 3.8, Chloride Level 95L, Carbon Dioxide Level 31H, Anion Gap 9, Blood Urea Nitrogen 13, Creatinine 0.9, Estimat Glomerular Filtration Rate , Glucose Level 115H, Calcium Level 8.5L , Magnesium Level 2.0 Height (Feet): 6 Height (Inches): 1.00 Weight (Pounds): 200 EENT: PERRL/EOMI Neck: supple Cardiovascular: normal rate Respiratory/Chest: lungs clear Abdomen: soft Elliot Gonzalez MD Jul 06, 2016 12:50
[2016-07-06 16:00] VITALS: BP 127/68
--- NOTE | 2016-07-06 16:41 | General Progress Note ---
Assessment/Plan Assessment/Plan ASSESSMENT: 1. Pancytopenia, potentially concerning for liver disease plus benign congenital neutropenia, and underlying infection. Await US ABD 2. 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 Thrombocytopenia, potentially secondary to infection >100,000 and stable. 5. Coagulopathy, potentially secondary to either malnutrition and/or liver disease. 6. Decreased H/H likely 2/2 hemodilution 7. Pneumonia. 8. Chronic cough. 9. Hypertension. 10. Small lymph nodes measuring less than one CM in the retroperitoneum and inguinal regions nonspecific. RECOMMENDATIONS: 1. Monitor counts. 2. Transfuse as needed. 3. Maintain hemoglobin level >7.5. 4. Anemia workup reviewed - ferritin is wnl, tibc nml, iron low - thus much less likely iron deficiency 5. US Abd pending 6. DVT prophylaxis with heparin sq 7. F/U on cards recs 8. GI prophylaxis prn 9. Nephrology f/u 10. Discussed with staff. Thank you, Reilly Molina MD Subjective Constitutional: Reports: no symptoms HEENT: Reports: no symptoms Cardiovascular: Reports: no symptoms Respiratory: Reports: no symptoms Gastrointestinal/Abdominal: Reports: poor appetite Genitourinary: Reports: no symptoms Neurologic/Psychiatric: Reports: no symptoms Endocrine: Reports: no symptoms Hematologic/Lymphatic: Reports: anemia Allergies: Coded Allergies: BENAZEPRIL (Unverified Allergy, Intermediate, 03/03/16) TERAZOSIN (Verified Allergy, Intermediate, 03/03/16) Subjective no events overnight, not actively bleeding Objective Last 24 Hour Vital Signs Date Time Temp Pulse Resp B/P Pulse Ox O2 Delivery O2 Flow Rate FiO2 07/06/16 11:44 97.5 77 20 122/72 99 Room Air 07/06/16 09:00 103/56 07/06/16 08:08 98.1 72 21 103/56 95 Room Air 07/06/16 04:00 97.9 69 20 125/71 97 Room Air 07/06/16 00:00 98.2 79 20 143/72 97 Room Air 07/05/16 20:00 97.3 81 20 133/67 100 Room Air Intake and Output 07/05/16 07/06/16 19:00 07:00 Intake Total 200 ml 560 ml Output Total 750 ml 200 ml Balance -550 ml 360 ml Intake Oral 360 ml IV Total 200 ml 200 ml Output Urine Total 750 ml 200 ml # Voids 1 # Bowel Movements 1 Laboratory Tests 07/06/16 05:20: Stool Occult Blood Negative 07/06/16 06:15: White Blood Count 4.6L, Red Blood Count 3.26L, Hemoglobin 10.8L, Hematocrit 33.1L, Mean Corpuscular Volume 102H, Mean Corpuscular Hemoglobin 33.1H, Mean Corpuscular Hemoglobin Concent 32.6, Red Cell Distribution Width 12.4, Platelet Count 140L, Mean Platelet Volume 7.7, Neutrophils (%) (Auto) 52.8, Lymphocytes ( %) (Auto) 28.8, Monocytes (%) (Auto) 16.2H, Eosinophils (%) (Auto) 1.4, Basophils (%) (Auto) 0.9, Sodium Level 135, Potassium Level 3.8, Chloride Level 95L, Carbon Dioxide Level 31H, Anion Gap 9, Blood Urea Nitrogen 13, Creatinine 0.9, Estimat Glomerular Filtration Rate , Glucose Level 115H, Calcium Level 8.5L , Magnesium Level 2.0 Height (Feet): 6 Height (Inches): 1.00 Weight (Pounds): 200 General Appearance: no apparent distress EENT: TMs normal Neck: supple Cardiovascular: normal rate Respiratory/Chest: chest wall non-tender Abdomen: normal bowel sounds Extremities: non-tender Edema: 1+ Leg (L), 1+ Leg (R) Edema: mild edema Neurologic: alert Skin: warm/dry Reilly Molina Jul 06, 2016 16:41
--- NOTE | 2016-07-06 18:08 | Cardiac Electrophysiology PN ---
Assessment/Plan Status Narrative Normal left ventricular chamber size. MODERATE GLOBAL SYSTOLIC DYSFUNCTION. Left ventricular ejection fraction estimated to be 35-40%. Concentric left ventricular hypertrophy. Left atrium and right atrium are in upper normal limits. All other cardiac chamber sizes are within normal limits. Mild focal aortic valve sclerosis with adequate cusp excursion Mildly thickened mitral valve leaflets with normal excursion. Mild mitral annulus and aortic root calcification. Pulmonic valve visualized. Normal tricuspid valve structure. IVC dilated at 2.3cm with physiologic collapse. Assessment/Plan 1. CHF with Bilateral lower extremity edema and scrotal edema. Continue Lasix 40 mg IV daily and Cozaar. Add Coreg 3.125 bid. Echocardiogram EF 35%. BNP still more than 4000. 2. Hypertension. Continue Lasix and Cozaar 25 mg daily. 3. Hyperlipidemia, on Lipitor. 4. Hypothyroidism, on Synthroid. 5. Diarrhea. Stool Clostridium difficile 6. Fecal impaction per Dr Mac. MOE RN Subjective Subjective Alert in NAD. Complains of productive cough . Objective Last 24 Hour Vital Signs Date Time Temp Pulse Resp B/P Pulse Ox O2 Delivery O2 Flow Rate FiO2 07/06/16 16:00 97.7 72 20 127/68 99 Room Air 07/06/16 11:44 97.5 77 20 122/72 99 Room Air 07/06/16 09:00 103/56 07/06/16 08:08 98.1 72 21 103/56 95 Room Air 07/06/16 04:00 97.9 69 20 125/71 97 Room Air 07/06/16 00:00 98.2 79 20 143/72 97 Room Air 07/05/16 20:00 97.3 81 20 133/67 100 Room Air Intake and Output 07/05/16 07/06/16 19:00 07:00 Intake Total 200 ml 560 ml Output Total 750 ml 200 ml Balance -550 ml 360 ml Intake Oral 360 ml IV Total 200 ml 200 ml Output Urine Total 750 ml 200 ml # Voids 1 # Bowel Movements 1 Laboratory Tests Test 07/06/16 05:20 07/06/16 06:15 Stool Occult Blood Negative (NEGATIVE) White Blood Count 4.6 K/UL (4.8-10.8) L Red Blood Count 3.26 M/UL (4.70-6.10) L Hemoglobin 10.8 G/DL (14.2-18.0) L Hematocrit 33.1 % (42.0-52.0) L Mean Corpuscular Volume 102 FL (80-99) H Mean Corpuscular Hemoglobin 33.1 PG (27.0-31.0) H Mean Corpuscular Hemoglobin Concent 32.6 G/DL (32.0-36.0) Red Cell Distribution Width 12.4 % (11.6-14.8) Platelet Count 140 K/UL (150-450) L Mean Platelet Volume 7.7 FL (6.5-10.1) Neutrophils (%) (Auto) 52.8 % (45.0-75.0) Lymphocytes (%) (Auto) 28.8 % (20.0-45.0) Monocytes (%) (Auto) 16.2 % (1.0-10.0) H Eosinophils (%) (Auto) 1.4 % (0.0-3.0) Basophils (%) (Auto) 0.9 % (0.0-2.0) Sodium Level 135 mEQ/L (135-145) Potassium Level 3.8 mEQ/L (3.4-4.9) Chloride Level 95 mEQ/L (98-107) L Carbon Dioxide Level 31 mEQ/L (20-30) H Anion Gap 9 (5-15) Blood Urea Nitrogen 13 mg/dL (7-23) Creatinine 0.9 mg/dL (0.7-1.2) Estimat Glomerular Filtration Rate mL/min (>60) Glucose Level 115 mg/dL (74-106) H Calcium Level 8.5 mg/dL (8.6-10.2) L Magnesium Level 2.0 mg/dL (1.7-2.5) Microbiology Date/Time Source Procedure Growth Status 07/04/16 21:00 Stool Clostridium difficile Toxin Assay - Final Complete Objective NECK: Shows mild JVD. LUNGS: Decreased breath sounds. CARDIOVASCULAR: Shows regular S1 and S2 with no gallop or murmur. ABDOMEN: Soft. EXTREMITIES: A 2+ pitting edema as well as scrotal edema. ORTIZ ZARAGOZA Jul 06, 2016 18:08
[2016-07-06 19:00] VITALS: BP 147/81
[2016-07-06] MEDS ORDERED: DuoNeb 0.5-3(2.5)mg/3ml neb HHN PRN (23:30)
--- NOTE | 2016-07-06 23:38 | Consultation ---
History of Present Illness General Chief Complaint: Edema Present Illness Allergies: Coded Allergies: BENAZEPRIL (Unverified Allergy, Intermediate, 03/03/16) TERAZOSIN (Verified Allergy, Intermediate, 03/03/16) Medication History Scheduled Ascorbic Acid* (Vitamin C*), 500 MG ORAL TWICE A DAY, (Reported) Atorvastatin Calcium* (Lipitor*), 10 MG ORAL BEDTIME, (Reported) Docusate Sodium* (Docusate Sodium*), 250 MG ORAL DAILY, (Reported) Ferrous Sulfate* (Ferrous Sulfate*), 325 MG ORAL DAILY, (Reported) Furosemide* (Lasix*), 20 MG ORAL DAILY, (Reported) Gabapentin* (Neurontin*), 300 MG ORAL THREE TIMES A DAY, (Reported) Latanoprost* (Xalatan*), 1 DROP BOTH EYES BEDTIME, (Reported) Levothyroxine Sodium* (Levoxyl*), 25 MCG ORAL DAILY, (Reported) Loperamide Hcl (Loperamide), 4 MG PO EVERY 12 HOURS, (Reported) Losartan Potassium* (Cozaar*), 25 MG ORAL DAILY, (Reported) Multivitamin With Minerals (Multivitamins With Minerals*), 1 TAB ORAL DAILY, ( Reported) Tamsulosin Hcl (Tamsulosin Hcl*), 0.4 MG ORAL BEDTIME, (Reported) Scheduled PRN Acetaminophen* (Tylenol Extra Strength*), 500 MG ORAL DAILY PRN for Mild Pain/ Temp > 100.5, (Reported) Patient History Healthcare decision maker pt alert and oriented Resuscitation status Full Code Advanced Directive on File Physical Exam Last 24 Hour Vital Signs Date Time Temp Pulse Resp B/P Pulse Ox O2 Delivery O2 Flow Rate FiO2 07/06/16 21:34 74 146/86 07/06/16 19:00 98.1 74 20 147/81 100 Room Air 07/06/16 16:00 97.7 72 20 127/68 99 Room Air 07/06/16 11:44 97.5 77 20 122/72 99 Room Air 07/06/16 09:00 103/56 07/06/16 08:08 98.1 72 21 103/56 95 Room Air 07/06/16 04:00 97.9 69 20 125/71 97 Room Air 07/06/16 00:00 98.2 79 20 143/72 97 Room Air Intake and Output 07/05/16 07/06/16 19:00 07:00 Intake Total 200 ml 560 ml Output Total 750 ml 200 ml Balance -550 ml 360 ml Intake Oral 360 ml IV Total 200 ml 200 ml Output Urine Total 750 ml 200 ml # Voids 1 # Bowel Movements 1 Laboratory Tests Test 07/06/16 05:20 07/06/16 06:15 Stool Occult Blood Negative (NEGATIVE) White Blood Count 4.6 K/UL (4.8-10.8) L Red Blood Count 3.26 M/UL (4.70-6.10) L Hemoglobin 10.8 G/DL (14.2-18.0) L Hematocrit 33.1 % (42.0-52.0) L Mean Corpuscular Volume 102 FL (80-99) H Mean Corpuscular Hemoglobin 33.1 PG (27.0-31.0) H Mean Corpuscular Hemoglobin Concent 32.6 G/DL (32.0-36.0) Red Cell Distribution Width 12.4 % (11.6-14.8) Platelet Count 140 K/UL (150-450) L Mean Platelet Volume 7.7 FL (6.5-10.1) Neutrophils (%) (Auto) 52.8 % (45.0-75.0) Lymphocytes (%) (Auto) 28.8 % (20.0-45.0) Monocytes (%) (Auto) 16.2 % (1.0-10.0) H Eosinophils (%) (Auto) 1.4 % (0.0-3.0) Basophils (%) (Auto) 0.9 % (0.0-2.0) Sodium Level 135 mEQ/L (135-145) Potassium Level 3.8 mEQ/L (3.4-4.9) Chloride Level 95 mEQ/L (98-107) L Carbon Dioxide Level 31 mEQ/L (20-30) H Anion Gap 9 (5-15) Blood Urea Nitrogen 13 mg/dL (7-23) Creatinine 0.9 mg/dL (0.7-1.2) Estimat Glomerular Filtration Rate mL/min (>60) Glucose Level 115 mg/dL (74-106) H Calcium Level 8.5 mg/dL (8.6-10.2) L Magnesium Level 2.0 mg/dL (1.7-2.5) Height (Feet): 6 Height (Inches): 1.00 Weight (Pounds): 200 Medications Current Medications Medications (Trade) Dose Ordered Sig/Bernardino Route PRN Reason Start Time Stop Time Status Last Admin Dose Admin Acetaminophen (Tylenol) 500 mg DAILY PRN ORAL Mild Pain/Temp > 100.5 07/02/16 18:30 08/01/16 18:29 07/05/16 20:29 Ascorbic Acid (Vitamin C) 500 mg TWICE A DAY ORAL 07/03/16 09:00 08/02/16 08:59 07/06/16 18:27 Atorvastatin Calcium (Lipitor) 10 mg BEDTIME ORAL 07/02/16 21:00 08/01/16 20:59 07/06/16 21:33 Carvedilol (Coreg) 3.125 mg EVERY 12 HOURS ORAL 07/06/16 21:00 08/05/16 20:59 07/06/16 21:34 Docusate Sodium (Colace) 250 mg DAILY ORAL 07/03/16 09:00 08/02/16 08:59 Furosemide (Lasix) 40 mg DAILY IV 07/04/16 09:00 08/03/16 08:59 07/06/16 09:11 Gabapentin (Neurontin) 300 mg THREE TIMES A DAY ORAL 07/02/16 18:30 08/01/16 18:29 07/06/16 18:27 Heparin Sodium (Porcine) (Heparin 5000 units/ml) 5,000 units EVERY 12 HOURS SUBQ 07/03/16 21:00 08/02/16 20:59 Latanoprost (Xalatan) 1 drop BEDTIME BOTH EYES 07/02/16 21:00 08/01/16 20:59 07/06/16 21:32 Levothyroxine Sodium (Synthroid) 25 mcg ACBREAKFAST ORAL 07/03/16 06:30 08/02/16 06:29 07/06/16 05:49 Losartan Potassium (Cozaar) 25 mg DAILY ORAL 07/03/16 09:00 08/02/16 08:59 07/05/16 08:45 Miconazole Nitrate (Miconazole Nitrate) 1 applic BID TOPIC 07/03/16 09:00 08/02/16 08:59 07/06/16 18:27 KIMBER ZAPIEN Jul 06, 2016 23:38
[2016-07-07] VITALS: BP 121/84
[2016-07-07] MEDS: Promethazine/Codeine 5ml UD ORAL PRN ×2 (00:37→07:33)
[2016-07-07] MEDS: Acetaminophen 500mg (ES) tab ORAL PRN ×2 (00:37→16:20)
[2016-07-07 04:00] VITALS: BP 125/78
[2016-07-07] MEDS: Levothyroxine 25mcg tab ORAL SCH (06:03)
[2016-07-07 08:36] VITALS: BP 140/80
[2016-07-07] MEDS: Docusate 250mg cap ORAL SCH (08:40)
[2016-07-07] MEDS: Losartan 25mg tab ORAL SCH (08:41)
[2016-07-07] MEDS: Heparin 5000 units/ml inj SUBQ SCH (08:41)
[2016-07-07] MEDS: Miconazole 2% Cream 30gm TOPIC SCH (08:41)
[2016-07-07] MEDS: Ascorbic Acid 500mg tab ORAL SCH (08:41)
--- NOTE | 2016-07-07 08:45 | Pulmonology Progress Note ---
Assessment/Plan Assessment/Plan ASSESSMENT leg edema cardiomyopathy systolic heart failure hypothyroidism with elevated TSH hyperlipidemia dementia anemia PLAN OF CARE MS floor O2 HH prn CXR pending for today ECHO with EF 35-40% moderate global systolic dysfunction CT A/P bilateral pleural effusion, small Venous Duplex BLE negative elevated TSH, increase Synthroid dose HH stable, iron panel with low iron, heme follows, s/p Venofer x 3 days DVT, prophylaxis CXR - Right basilar hazy opacity, likely reflects residual but decreased pleural fluid, since prior exam of 07/02/2016. dc plan as per PMD cleared from pulmonary standpoint case discussed and evaluated by supervising physician Subjective Allergies: Coded Allergies: BENAZEPRIL (Unverified Allergy, Intermediate, 03/03/16) TERAZOSIN (Verified Allergy, Intermediate, 03/03/16) Subjective denies chess pain, SOB, palpitation afebrile, no leucocytosis ECHO with EF 35-40% Objective Last 24 Hour Vital Signs Date Time Temp Pulse Resp B/P Pulse Ox O2 Delivery O2 Flow Rate FiO2 07/07/16 08:36 97.9 70 15 140/80 100 Room Air 07/07/16 07:25 77 15 Room Air 07/07/16 04:00 97.7 74 24 125/78 100 Room Air 07/07/16 03:26 74 14 Room Air 07/07/16 00:00 98.2 74 20 121/84 100 Room Air 07/06/16 21:34 74 146/86 07/06/16 19:00 98.1 74 20 147/81 100 Room Air 07/06/16 16:00 97.7 72 20 127/68 99 Room Air 07/06/16 11:44 97.5 77 20 122/72 99 Room Air 07/06/16 09:00 103/56 Intake and Output 07/06/16 07/07/16 19:00 07:00 Intake Total 1160 ml 300 ml Output Total 1300 ml 600 ml Balance -140 ml -300 ml Intake Oral 1160 ml 300 ml Output Urine Total 1300 ml 600 ml # Voids 4 3 General Appearance: no acute distress, other - awake, alert, responsive AA male in the ebd HEENT: normocephalic, atraumatic, anicteric, mucous membranes moist Respiratory/Chest: lungs clear, normal breath sounds, no respiratory distress, no accessory muscle use Cardiovascular: normal peripheral pulses, normal rate, regular rhythm, no JVD Abdomen: normal bowel sounds, soft, non tender, non distended Genitourinary: normal external genitalia Extremities: other - trace edema BLE Neurologic/Psychiatric: alert, responsive, normal mood/affect Microbiology Date/Time Source Procedure Growth Status 07/04/16 21:00 Stool Clostridium difficile Toxin Assay - Final Complete Current Medications Medications (Trade) Dose Ordered Sig/Bernardino Route PRN Reason Start Time Stop Time Status Last Admin Dose Admin Acetaminophen (Tylenol) 500 mg DAILY PRN ORAL Mild Pain/Temp > 100.5 07/02/16 18:30 08/01/16 18:29 07/07/16 00:37 Albuterol/ Ipratropium (DuoNeb 0.5-3(2.5)mg/3ml) 3 ml Q4H PRN HHN Shortness of Breath 07/06/16 23:30 07/11/16 23:29 Ascorbic Acid (Vitamin C) 500 mg TWICE A DAY ORAL 07/03/16 09:00 08/02/16 08:59 07/06/16 18:27 Atorvastatin Calcium (Lipitor) 10 mg BEDTIME ORAL 07/02/16 21:00 08/01/16 20:59 07/06/16 21:33 Carvedilol (Coreg) 3.125 mg EVERY 12 HOURS ORAL 07/06/16 21:00 08/05/16 20:59 07/06/16 21:34 Docusate Sodium (Colace) 250 mg DAILY ORAL 07/03/16 09:00 08/02/16 08:59 Furosemide (Lasix) 40 mg DAILY IV 07/04/16 09:00 08/03/16 08:59 07/06/16 09:11 Gabapentin (Neurontin) 300 mg THREE TIMES A DAY ORAL 07/02/16 18:30 08/01/16 18:29 07/06/16 18:27 Heparin Sodium (Porcine) (Heparin 5000 units/ml) 5,000 units EVERY 12 HOURS SUBQ 07/03/16 21:00 08/02/16 20:59 Latanoprost (Xalatan) 1 drop BEDTIME BOTH EYES 07/02/16 21:00 08/01/16 20:59 07/06/16 21:32 Levothyroxine Sodium (Synthroid) 25 mcg ACBREAKFAST ORAL 07/03/16 06:30 08/02/16 06:29 07/07/16 06:03 Losartan Potassium (Cozaar) 25 mg DAILY ORAL 07/03/16 09:00 08/02/16 08:59 07/05/16 08:45 Miconazole Nitrate (Miconazole Nitrate) 1 applic BID TOPIC 07/03/16 09:00 08/02/16 08:59 07/06/16 18:27 Promethazine HCl/ Codeine (Phenergan with Codeine) 5 ml Q4H PRN ORAL For Cough 07/06/16 23:30 08/05/16 23:29 07/07/16 07:33 [facility] ([facility])Marilynn NP Jul 07, 2016 08:45
--- NOTE | 2016-07-07 09:32 | Cardiac Electrophysiology PN ---
Assessment/Plan Status Narrative Normal left ventricular chamber size. MODERATE GLOBAL SYSTOLIC DYSFUNCTION. Left ventricular ejection fraction estimated to be 35-40%. Concentric left ventricular hypertrophy. Left atrium and right atrium are in upper normal limits. All other cardiac chamber sizes are within normal limits. Mild focal aortic valve sclerosis with adequate cusp excursion Mildly thickened mitral valve leaflets with normal excursion. Mild mitral annulus and aortic root calcification. Pulmonic valve visualized. Normal tricuspid valve structure. IVC dilated at 2.3cm with physiologic collapse. Assessment/Plan 1. CHF with Bilateral lower extremity edema and scrotal edema. Continue Lasix 40 mg IV daily, Cozaar and Coreg 3.125 bid. Echocardiogram EF 35%. BNP still more than 4000. 2. Hypertension. Continue Lasix,Coreg,Cozaar 25 mg daily.Add aldactone 25 daily. 3. Hyperlipidemia, on Lipitor. 4. Hypothyroidism, on Synthroid. 5. Diarrhea. 6. Fecal impaction, resolved per Dr Mac. MOE RN Subjective Subjective Alert in NAD. Cough is better. No events overnight . Objective Last 24 Hour Vital Signs Date Time Temp Pulse Resp B/P Pulse Ox O2 Delivery O2 Flow Rate FiO2 07/07/16 08:41 140/80 07/07/16 08:40 70 140/80 07/07/16 08:36 97.9 70 15 140/80 100 Room Air 07/07/16 07:25 77 15 Room Air 07/07/16 04:00 97.7 74 24 125/78 100 Room Air 07/07/16 03:26 74 14 Room Air 07/07/16 00:00 98.2 74 20 121/84 100 Room Air 07/06/16 21:34 74 146/86 07/06/16 19:00 98.1 74 20 147/81 100 Room Air 07/06/16 16:00 97.7 72 20 127/68 99 Room Air 07/06/16 11:44 97.5 77 20 122/72 99 Room Air Intake and Output 07/06/16 07/07/16 19:00 07:00 Intake Total 1160 ml 300 ml Output Total 1300 ml 600 ml Balance -140 ml -300 ml Intake Oral 1160 ml 300 ml Output Urine Total 1300 ml 600 ml # Voids 4 3 Labs Test 07/06/16 05:20 07/06/16 06:15 Stool Occult Blood Negative (NEGATIVE) White Blood Count 4.6 K/UL (4.8-10.8) Red Blood Count 3.26 M/UL (4.70-6.10) Hemoglobin 10.8 G/DL (14.2-18.0) Hematocrit 33.1 % (42.0-52.0) Mean Corpuscular Volume 102 FL (80-99) Mean Corpuscular Hemoglobin 33.1 PG (27.0-31.0) Mean Corpuscular Hemoglobin Concent 32.6 G/DL (32.0-36.0) Red Cell Distribution Width 12.4 % (11.6-14.8) Platelet Count 140 K/UL (150-450) Mean Platelet Volume 7.7 FL (6.5-10.1) Neutrophils (%) (Auto) 52.8 % (45.0-75.0) Lymphocytes (%) (Auto) 28.8 % (20.0-45.0) Monocytes (%) (Auto) 16.2 % (1.0-10.0) Eosinophils (%) (Auto) 1.4 % (0.0-3.0) Basophils (%) (Auto) 0.9 % (0.0-2.0) Sodium Level 135 mEQ/L (135-145) Potassium Level 3.8 mEQ/L (3.4-4.9) Chloride Level 95 mEQ/L (98-107) Carbon Dioxide Level 31 mEQ/L (20-30) Anion Gap 9 (5-15) Blood Urea Nitrogen 13 mg/dL (7-23) Creatinine 0.9 mg/dL (0.7-1.2) Estimat Glomerular Filtration Rate mL/min (>60) Glucose Level 115 mg/dL (74-106) Calcium Level 8.5 mg/dL (8.6-10.2) Magnesium Level 2.0 mg/dL (1.7-2.5) Current Medications Medications (Trade) Dose Ordered Sig/Bernardino Route PRN Reason Start Time Stop Time Status Last Admin Dose Admin Acetaminophen (Tylenol) 500 mg DAILY PRN ORAL Mild Pain/Temp > 100.5 07/02/16 18:30 08/01/16 18:29 07/07/16 00:37 Albuterol/ Ipratropium (DuoNeb 0.5-3(2.5)mg/3ml) 3 ml Q4H PRN HHN Shortness of Breath 07/06/16 23:30 07/11/16 23:29 Ascorbic Acid (Vitamin C) 500 mg TWICE A DAY ORAL 07/03/16 09:00 08/02/16 08:59 07/07/16 08:41 Atorvastatin Calcium (Lipitor) 10 mg BEDTIME ORAL 07/02/16 21:00 08/01/16 20:59 07/06/16 21:33 Carvedilol (Coreg) 3.125 mg EVERY 12 HOURS ORAL 07/06/16 21:00 08/05/16 20:59 07/07/16 08:40 Docusate Sodium (Colace) 250 mg DAILY ORAL 07/03/16 09:00 08/02/16 08:59 Furosemide (Lasix) 40 mg DAILY IV 07/04/16 09:00 08/03/16 08:59 07/07/16 08:40 Gabapentin (Neurontin) 300 mg THREE TIMES A DAY ORAL 07/02/16 18:30 08/01/16 18:29 07/07/16 08:41 Heparin Sodium (Porcine) (Heparin 5000 units/ml) 5,000 units EVERY 12 HOURS SUBQ 07/03/16 21:00 08/02/16 20:59 Latanoprost (Xalatan) 1 drop BEDTIME BOTH EYES 07/02/16 21:00 08/01/16 20:59 07/06/16 21:32 Levothyroxine Sodium (Synthroid) 25 mcg ACBREAKFAST ORAL 07/03/16 06:30 08/02/16 06:29 07/07/16 06:03 Losartan Potassium (Cozaar) 25 mg DAILY ORAL 07/03/16 09:00 08/02/16 08:59 07/07/16 08:41 Miconazole Nitrate (Miconazole Nitrate) 1 applic BID TOPIC 07/03/16 09:00 08/02/16 08:59 07/07/16 08:41 Promethazine HCl/ Codeine (Phenergan with Codeine) 5 ml Q4H PRN ORAL For Cough 07/06/16 23:30 08/05/16 23:29 07/07/16 07:33 Microbiology Date/Time Source Procedure Growth Status 07/04/16 21:00 Stool Clostridium difficile Toxin Assay - Final Complete Objective NECK: Shows mild JVD. LUNGS: Decreased breath sounds. CARDIOVASCULAR: Shows regular S1 and S2 with no gallop or murmur. ABDOMEN: Soft. EXTREMITIES: A 2+ pitting edema as well as scrotal edema. ORTIZ ZARAGOZA Jul 07, 2016 09:32
[2016-07-07 10:43] LABS: BASOPHILS % (AUTO) 1.4 % (0.0-2.0); EOSINOPHILS % (AUTO) 1.7 % (0.0-3.0); LYMPHOCYTES % (AUTO) 22.1 % (20.0-45.0); MEAN CORPUSCULAR HEMOGLOBIN 32.3 PG (27.0-31.0); MEAN CORPUSCULAR HGB CONC 32.6 G/DL (32.0-36.0); MEAN CORPUSCULAR VOLUME 99 FL (80-99); MEAN PLATELET VOLUME 7.4 FL (6.5-10.1); MONOCYTES % (AUTO) 17.7 % (1.0-10.0); NEUTROPHILS % (AUTO) 57.1 % (45.0-75.0); PLATELET COUNT 156 K/UL (150-450); RED BLOOD COUNT 3.54 M/UL (4.70-6.10); RED CELL DISTRIBUTION WIDTH 12.8 % (11.6-14.8); WHITE BLOOD COUNT 4.5 K/UL (4.8-10.8)
[2016-07-07 10:50] LABS: ALANINE AMINOTRANSFERASE 21 U/L (3-41); ANION GAP 10 (5-15); ASPARTATE AMINO TRANSFERASE 26 U/L (5-40); CALCIUM 8.7 mg/dL (8.6-10.2); CARBON DIOXIDE 32 mEQ/L (20-30); CHLORIDE 92 mEQ/L (98-107); CREATININE 0.9 mg/dL (0.7-1.2); HEMOLYSIS 4; POTASSIUM 3.9 mEQ/L (3.4-4.9); SODIUM 134 mEQ/L (135-145); TOTAL PROTEIN 6.4 g/dL (6.6-8.7)
[2016-07-07 11:08] LABS: BILIRUBIN,DIRECT 0.5 mg/dL (0.1-0.3)
[2016-07-07 11:57] VITALS: BP 103/62
--- NOTE | 2016-07-07 12:17 | Diagnostic Imaging Report ---
Indication: DYSPNEA Technique: One view of the chest Comparison: On 07/21/16 Findings: Hazy opacity the right lung base persists may indicate a small amount of pleural fluid. There is also minimal blunting of left costophrenic sulcus, decreased from the prior study. The heart is upper limits of normal in size. Aorta is tortuous and calcified. Are degenerative changes of both shoulders Impression: Right basilar hazy opacity, likely reflects residual but decreased pleural fluid, since prior exam of 07/02/2016. There may be some underlying parenchymal consolidation as well. Other stable findings as described
--- NOTE | 2016-07-07 13:08 | GI Progress Note ---
Assessment/Plan Problems: (1) Poor appetite ICD Codes: R63.0 - Anorexia SNOMED: 27523157 (2) FTT (failure to thrive) in adult ICD Codes: R62.7 - Adult failure to thrive SNOMED: 836606366 (3) Weakness ICD Codes: R53.1 - Weakness SNOMED: 31081222 (4) CHF (congestive heart failure) ICD Codes: I50.9 - Heart failure, unspecified SNOMED: 79800261 (5) Edema ICD Codes: R60.9 - Edema, unspecified SNOMED: 218087826 (6) Anemia ICD Codes: D64.9 - Anemia, unspecified SNOMED: 078262480 (7) Fecal impaction in rectum ICD Codes: K56.41 - Fecal impaction SNOMED: 46647134 Status: stable, progressing Status Narrative Discussed with Dr. Mac. Assessment/Plan ok for DC per GI standpoint APCT >> fecal impaction - mineral oil enema, massive BM reported by PT cdiff negative OB stool negative hep panel negative iron deficient >> venofer bowel regime push PO PT eval fu labs Subjective Gastrointestinal/Abdominal: Reports: constipated - resolved Objective Last 24 Hour Vital Signs Date Time Temp Pulse Resp B/P Pulse Ox O2 Delivery O2 Flow Rate FiO2 07/07/16 11:57 97.9 63 15 103/62 100 Room Air 07/07/16 08:41 140/80 07/07/16 08:40 70 140/80 07/07/16 08:36 97.9 70 15 140/80 100 Room Air 07/07/16 07:25 77 15 Room Air 07/07/16 04:00 97.7 74 24 125/78 100 Room Air 07/07/16 03:26 74 14 Room Air 07/07/16 00:00 98.2 74 20 121/84 100 Room Air 07/06/16 21:34 74 146/86 07/06/16 19:00 98.1 74 20 147/81 100 Room Air 07/06/16 16:00 97.7 72 20 127/68 99 Room Air Intake and Output 07/06/16 07/07/16 19:00 07:00 Intake Total 1160 ml 300 ml Output Total 1300 ml 600 ml Balance -140 ml -300 ml Intake Oral 1160 ml 300 ml Output Urine Total 1300 ml 600 ml # Voids 4 3 Laboratory Tests Test 07/07/16 09:45 White Blood Count 4.5 K/UL (4.8-10.8) L Red Blood Count 3.54 M/UL (4.70-6.10) L Hemoglobin 11.4 G/DL (14.2-18.0) L Hematocrit 35.0 % (42.0-52.0) L Mean Corpuscular Volume 99 FL (80-99) Mean Corpuscular Hemoglobin 32.3 PG (27.0-31.0) H Mean Corpuscular Hemoglobin Concent 32.6 G/DL (32.0-36.0) Red Cell Distribution Width 12.8 % (11.6-14.8) Platelet Count 156 K/UL (150-450) Mean Platelet Volume 7.4 FL (6.5-10.1) Neutrophils (%) (Auto) 57.1 % (45.0-75.0) Lymphocytes (%) (Auto) 22.1 % (20.0-45.0) Monocytes (%) (Auto) 17.7 % (1.0-10.0) H Eosinophils (%) (Auto) 1.7 % (0.0-3.0) Basophils (%) (Auto) 1.4 % (0.0-2.0) Sodium Level 134 mEQ/L (135-145) L Potassium Level 3.9 mEQ/L (3.4-4.9) Chloride Level 92 mEQ/L (98-107) L Carbon Dioxide Level 32 mEQ/L (20-30) H Anion Gap 10 (5-15) Blood Urea Nitrogen 12 mg/dL (7-23) Creatinine 0.9 mg/dL (0.7-1.2) Estimat Glomerular Filtration Rate mL/min (>60) Glucose Level 143 mg/dL (74-106) H Calcium Level 8.7 mg/dL (8.6-10.2) Total Bilirubin 1.2 mg/dL (0.0-1.2) Direct Bilirubin 0.5 mg/dL (0.1-0.3) H Aspartate Amino Transf (AST/SGOT) 26 U/L (5-40) Alanine Aminotransferase (ALT/SGPT) 21 U/L (3-41) Alkaline Phosphatase 52 U/L (40-129) Total Protein 6.4 g/dL (6.6-8.7) L Albumin 3.3 g/dL (3.5-5.2) L Globulin 3.1 g/dL Albumin/Globulin Ratio 1.0 (1.0-2.7) Height (Feet): 6 Height (Inches): 1.00 Weight (Pounds): 200 General Appearance: no apparent distress, alert Cardiovascular: normal rate Respiratory/Chest: no respiratory distress Abdominal Exam: normal bowel sounds, non tender, soft Objective Procedure: CT Abdomen Pelvis WO Contrast Indication: Abdominal pain Impression: Bilateral pleural effusions and posterior basal atelectasis. Proctitis with distention of the rectum due to fecal impaction. Status post prostatectomy. Small lymph nodes measuring less than one CM in the retroperitoneum and inguinal regions nonspecific. Consider PET CT for further evaluation especially there is a history of cancer. Spondylosis Atherosclerotic vascular disease Jacinda Borden N.P. Jul 07, 2016 13:08
--- NOTE | 2016-07-07 15:49 | General Progress Note ---
Assessment/Plan Problem List: (1) Anemia ICD Codes: D64.9 - Anemia, unspecified SNOMED: 465085662 (2) CHF (congestive heart failure) ICD Codes: I50.9 - Heart failure, unspecified SNOMED: 69123450 (3) Hypothyroidism ICD Codes: E03.9 - Hypothyroidism, unspecified SNOMED: 45099401 (4) HTN (hypertension) ICD Codes: I10 - Essential (primary) hypertension SNOMED: 74569284 (5) HLD (hyperlipidemia) ICD Codes: E78.5 - Hyperlipidemia, unspecified SNOMED: 58522160 (6) Weakness ICD Codes: R53.1 - Weakness SNOMED: 16993764 (7) Poor appetite ICD Codes: R63.0 - Anorexia SNOMED: 82605399 (8) Edema ICD Codes: R60.9 - Edema, unspecified SNOMED: 721349877 (9) FTT (failure to thrive) in adult ICD Codes: R62.7 - Adult failure to thrive SNOMED: 705791600 Status: progressing Assessment/Plan afebrile cough treatment per pulm and id dc if ok w id and pulm Subjective Respiratory: Reports: cough Allergies: Coded Allergies: BENAZEPRIL (Unverified Allergy, Intermediate, 03/03/16) TERAZOSIN (Verified Allergy, Intermediate, 03/03/16) Objective Last 24 Hour Vital Signs Date Time Temp Pulse Resp B/P Pulse Ox O2 Delivery O2 Flow Rate FiO2 07/07/16 11:57 97.9 63 15 103/62 100 Room Air 07/07/16 08:41 140/80 07/07/16 08:40 70 140/80 07/07/16 08:36 97.9 70 15 140/80 100 Room Air 07/07/16 07:25 77 15 Room Air 07/07/16 04:00 97.7 74 24 125/78 100 Room Air 07/07/16 03:26 74 14 Room Air 07/07/16 00:00 98.2 74 20 121/84 100 Room Air 07/06/16 21:34 74 146/86 07/06/16 19:00 98.1 74 20 147/81 100 Room Air 07/06/16 16:00 97.7 72 20 127/68 99 Room Air Intake and Output 07/06/16 07/07/16 18:59 06:59 Intake Total 1160 ml 300 ml Output Total 1300 ml 600 ml Balance -140 ml -300 ml Intake Oral 1160 ml 300 ml Output Urine Total 1300 ml 600 ml # Voids 4 3 Laboratory Tests 07/07/16 09:45: White Blood Count 4.5L, Red Blood Count 3.54L, Hemoglobin 11.4L, Hematocrit 35.0L, Mean Corpuscular Volume 99, Mean Corpuscular Hemoglobin 32.3H, Mean Corpuscular Hemoglobin Concent 32.6, Red Cell Distribution Width 12.8, Platelet Count 156, Mean Platelet Volume 7.4, Neutrophils (%) (Auto) 57.1, Lymphocytes (% ) (Auto) 22.1, Monocytes (%) (Auto) 17.7H, Eosinophils (%) (Auto) 1.7, Basophils (%) (Auto) 1.4, Sodium Level 134L, Potassium Level 3.9, Chloride Level 92L, Carbon Dioxide Level 32H, Anion Gap 10, Blood Urea Nitrogen 12, Creatinine 0.9, Estimat Glomerular Filtration Rate , Glucose Level 143H, Calcium Level 8.7, Total Bilirubin 1.2, Direct Bilirubin 0.5H, Aspartate Amino Transf (AST/SGOT) 26, Alanine Aminotransferase (ALT/SGPT) 21, Alkaline Phosphatase 52, Total Protein 6.4L, Albumin 3.3L, Globulin 3.1, Albumin/ Globulin Ratio 1.0 Height (Feet): 6 Height (Inches): 1.00 Weight (Pounds): 200 EENT: PERRL/EOMI Neck: supple Cardiovascular: normal rate Respiratory/Chest: lungs clear Elliot Gonzalez MD Jul 07, 2016 15:49
[2016-07-07 16:00] VITALS: BP 120/74
--- NOTE | 2016-07-07 18:43 | General Progress Note ---
Assessment/Plan Assessment/Plan ASSESSMENT: 1. Pancytopenia, potentially concerning for liver disease plus benign congenital neutropenia, and underlying infection. Await US ABD 2. 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 Thrombocytopenia, potentially secondary to infection >100,000 and stable. 5. Coagulopathy, potentially secondary to either malnutrition and/or liver disease. 6. Decreased H/H likely 2/2 hemodilution 7. Pneumonia. 8. Chronic cough. 9. Hypertension. 10. Small lymph nodes measuring less than one CM in the retroperitoneum and inguinal regions nonspecific. RECOMMENDATIONS: 1. Monitor counts. 2. Transfuse as needed. 3. Maintain hemoglobin level >7.5. 4. Anemia workup reviewed - ferritin is wnl, tibc nml, iron low - thus much less likely iron deficiency 5. US Abd pending 6. DVT prophylaxis with heparin sq 7. F/U on cards recs 8. GI prophylaxis prn 9. From heme perspective, ok to d/c iv iron and d/c to SNIF - stable 10. Discussed with staff. Thank you, Reilly Molina MD Subjective Constitutional: Reports: no symptoms HEENT: Reports: no symptoms Cardiovascular: Reports: no symptoms Respiratory: Reports: no symptoms Gastrointestinal/Abdominal: Reports: no symptoms Genitourinary: Reports: no symptoms Neurologic/Psychiatric: Reports: no symptoms Endocrine: Reports: no symptoms Hematologic/Lymphatic: Reports: anemia Allergies: Coded Allergies: BENAZEPRIL (Unverified Allergy, Intermediate, 03/03/16) TERAZOSIN (Verified Allergy, Intermediate, 03/03/16) Subjective stable, not bleeding, cleared for d/c Objective Last 24 Hour Vital Signs Date Time Temp Pulse Resp B/P Pulse Ox O2 Delivery O2 Flow Rate FiO2 07/07/16 16:00 97.7 70 16 120/74 100 Room Air 07/07/16 11:57 97.9 63 15 103/62 100 Room Air 07/07/16 08:41 140/80 07/07/16 08:40 70 140/80 07/07/16 08:36 97.9 70 15 140/80 100 Room Air 07/07/16 07:25 77 15 Room Air 07/07/16 04:00 97.7 74 24 125/78 100 Room Air 07/07/16 03:26 74 14 Room Air 07/07/16 00:00 98.2 74 20 121/84 100 Room Air 07/06/16 21:34 74 146/86 07/06/16 19:00 98.1 74 20 147/81 100 Room Air Intake and Output 07/06/16 07/07/16 19:00 07:00 Intake Total 1160 ml 300 ml Output Total 1300 ml 600 ml Balance -140 ml -300 ml Intake Oral 1160 ml 300 ml Output Urine Total 1300 ml 600 ml # Voids 4 3 Laboratory Tests 07/07/16 09:45: White Blood Count 4.5L, Red Blood Count 3.54L, Hemoglobin 11.4L, Hematocrit 35.0L, Mean Corpuscular Volume 99, Mean Corpuscular Hemoglobin 32.3H, Mean Corpuscular Hemoglobin Concent 32.6, Red Cell Distribution Width 12.8, Platelet Count 156, Mean Platelet Volume 7.4, Neutrophils (%) (Auto) 57.1, Lymphocytes (% ) (Auto) 22.1, Monocytes (%) (Auto) 17.7H, Eosinophils (%) (Auto) 1.7, Basophils (%) (Auto) 1.4, Sodium Level 134L, Potassium Level 3.9, Chloride Level 92L, Carbon Dioxide Level 32H, Anion Gap 10, Blood Urea Nitrogen 12, Creatinine 0.9, Estimat Glomerular Filtration Rate , Glucose Level 143H, Calcium Level 8.7, Total Bilirubin 1.2, Direct Bilirubin 0.5H, Aspartate Amino Transf (AST/SGOT) 26, Alanine Aminotransferase (ALT/SGPT) 21, Alkaline Phosphatase 52, Total Protein 6.4L, Albumin 3.3L, Globulin 3.1, Albumin/ Globulin Ratio 1.0 Height (Feet): 6 Height (Inches): 1.00 Weight (Pounds): 200 General Appearance: alert EENT: TMs normal Neck: supple Cardiovascular: regular rhythm Respiratory/Chest: normal breath sounds Abdomen: soft Extremities: non-tender Edema: 1+ Leg (L), 1+ Leg (R) Edema: moderate edema Neurologic: alert Skin: warm/dry Reilly Molina Jul 07, 2016 18:43
[2016-07-08] MEDS ORDERED: Spironolactone 25mg tab ORAL SCH (09:00)
--- NOTE | 2016-07-09 10:29 | Diagnostic Imaging Report ---
Indication: Chest Technique: One view of the chest Comparison: none Findings: There is a right-sided pleural effusion. The heart is enlarged. No definite infiltrates or congestion. The aorta is calcified Impression: Cardiomegaly Small right pleural effusion
--- NOTE | 2016-07-09 10:31 | Diagnostic Imaging Report ---
Indication:Abdominal pain Technique: Grayscale and duplex Doppler imaging of the abdomen performed. Comparison: None Findings: The liver, demonstrated part of the pancreas, aorta and IVC, both kidneys, spleen appear unremarkable. There is no biliary ductal dilatation identified. Doppler evaluation of the main portal vein shows patency. There is trace ascites. Small bilateral pleural effusions are present. There is thickening of the gallbladder wall.. No hydronephrosis seen. Impression: Thickening of the gallbladder wall, nonspecific. Trace ascites Small bilateral pleural effusions
--- NOTE | 2016-07-10 08:36 | Discharge Summary ---
Discharge Summary Hospital Course Date of Admission Jul 02, 2016 at 12:15 Date of Discharge Jul 07, 2016 at 18:[address] TREY Berrywlkes is a 89 year old male who was admitted on Jul 02, 2016 at 12:15 for Dehydration,Renal Insufficiency Hospital Course dc summary dictated #[id number] dc diagnoses: systolic CHF with leg edema and scrotal edema HTN anemia of chronic disease leukopenia - 2 to underlying disease process fecal impaction -resolved hypothyroidism with elevated TSH dementia hyperlipidemia Discharge Discharge Disposition Patient was discharged to SNF/Subacute Facility(03) Discharge Diagnoses: Jensen (Marcinarlin)Marilynn NP Jul 10, 2016 08:36
--- NOTE | 2016-07-11 02:27 | Discharge Summary 2 SIG ---
DATE OF ADMISSION: 07/02/2016 DATE OF DISCHARGE: 07/07/2016 CONDITION: Stable. REASON FOR HOSPITALIZATION: This 89-year-old male was sent to the emergency department for evaluation due to the increased peripheral edema as well as with a concern for dehydration. Emergency department workup revealed leukopenia, anemia, small pleural effusion as well as the peripheral edema. Initial troponin was negative. Initial proBNP was 3860. The patient admitted to the telemetry for further management. ADMITTING DIAGNOSES: 1. Peripheral edema. 2. Leukopenia. 3. Anemia. 4. Pleural effusion. HOSPITAL COURSE: CONSULTATIONS: The following consults were requested: 1. Cardiology, Chapincito Campos M.D. 2. Pulmonary, Kaiden Sanders M.D. 3. Hematology, Fahad Talamantes M.D. 4. GI, Brendon Mac M.D. DIAGNOSTIC IMAGIN. Echocardiogram revealed ejection fraction of 35 to 40% with moderate global systolic dysfunction, concentric left ventricular hypertrophy, and right ventricular systolic pressure of 33. 2. Initial chest x-ray revealed cardiomegaly and small right pleural effusion. 3. Followup chest x-ray revealed decreased pleural fluid. 4. Venous duplex bilateral lower extremities was negative fro acute DVT. 5. Abdominal and pelvis CT revealed bilateral pleural effusion and atelectasis; proctitis and distention of the rectum due to the fecal impaction, small lymph nodes measuring less than 1 cm in the retroperitoneum and renal region, nonspecific. Recommended consider PET/CT for further evaluation if underlying history of cancer. No known history of cancer . Anemia workup was done. The patient was on Venofer for three days. Counts were monitored. Upon discharge, WBC up to 4.5 and hemoglobin stable at 11.4 with hematocrit of 35 and platelets 156,000. DVT and GI prophylaxes provided. Bowel regimen instituted for fecal impaction. Stool OB and stool for C. difficile as well as stool cultures were all negative. Hepatitis panel was negative. The patient was working with PT and OT. Web Development Consultant followed the patient. The patient was on the regimen of diuretics, Lasix and Aldactone. Pro BNP was trending. Chest x-ray with improvement of pleural effusion. Edema decreased. Blood pressure was managed with beta-emiliano and ARB, and it was stable. Statin was continued. Noted elevated TSH. Synthroid dose was increased. Will need recheck TSH in 3-4 weeks, Abdominal ultrasound was unremarkable. No gallstones, no biliary dilatation. It also revealed unremarkable liver and trace of ascites. All consultants cleared the patient for discharge. DISCHARGE DIAGNOSES: 1. Systolic heart failure with bilateral lower extremity edema and scrotal edema. 2. Hypertension. 3. Anemia of chronic disease. 4. Leukopenia likely secondary to infectious process, improved. 5. Fecal impaction, resolved. 6. Hyperlipidemia, stable. 7. Hypothyroidism with elevated TSH. 8. Dementia. DISCHARGE MEDICATIONS: See medication reconciliation list. DISCHARGE INSTRUCTIONS: The patient was discharged to [facility] facility. Follow up with medical doctor at the facility. Monitor counts. Push p.o. fluids. The patient will require to continue physical and occupational therapy. Monitor closely cardiac and pulmonary status . Elliot Gonzalez M.D. I have been assigned to dictate discharge summary on this account and I was not involved in the patient's management. Marilynn MazariegosSt. Clare'S HospitalLitzy N.PNeto DR: AMINATA JOB#: [id number] CC: ROGELIO
--- NOTE | 2016-07-18 16:09 | Diagnostic Imaging Report ---
APPROVED REPORT CPT Code: 98334 Symptoms Comments: Numbness and Spasm BILATERAL: Common femoral artery waveform analysis is within normal limits at rest. Color flow duplex sonography reveals patency of the superficial femoral, popliteal, and tibial arteries, there is no evidence of stenosis or occlusion within these segments. Doppler tibial artery waveform analysis is within normal limits, bilaterally. There is no evidence of significant arterial occlusive disease, bilaterally.
--- NOTE | 2016-07-18 16:09 | Diagnostic Imaging Report ---
APPROVED REPORT CPT Code: 81592 Present Symptoms Lower Extremity Pain: Lower Extremity Edema: Bilateral BILATERAL: Imaging reveals a patent deep venous system bilaterally. There is no evidence of thrombus within the femoral, popliteal or tibial segments. The greater saphenous veins are also within normal limits. Doppler indicates normal spontaneous flow within these segments.
== END 2016-07-07 18:17 | DRG 292 ==
LOC: EDUNIT# 11:20 → EDBD 11:20 → EMR 12:10 → 4E 12:15 → EDBEDREQ 14:15 → 4E 15:59
DX: I11.0 Hypertensive heart disease with heart failure (principal); D61.818 Other pancytopenia; D68.9 Coagulation defect, unspecified; E86.0 Dehydration; E46 Unspecified protein-calorie malnutrition; F03.90 Unspecified dementia, unspecified severity, without behavioral disturbance, psychotic disturbance, mood disturbance, and anxiety; Z23 Encounter for immunization; I50.9 Heart failure, unspecified; E03.9 Hypothyroidism, unspecified; N50.89 Other specified disorders of the male genital organs; E78.5 Hyperlipidemia, unspecified; N40.0 Benign prostatic hyperplasia without lower urinary tract symptoms; R62.7 Adult failure to thrive; R19.7 Diarrhea, unspecified; K56.41 Fecal impaction; I42.9 Cardiomyopathy, unspecified; K62.89 Other specified diseases of anus and rectum; Z85.46 Personal history of malignant neoplasm of prostate; Z68.26 Body mass index [BMI] 26.0-26.9, adult
CPT/HCPCS: 36415; 71010; 74176; 76700; 80048; 80053; 81001; 81003; 82248; 82270; 82550; 82553; 82607; 82728; 82746; 83540; 83550; 83690; 83735; 83880; 84100; 84439; 84443; 84481; 84484; 85025; 85610; 85730; 86703; 86705; 86709; 86803; 87045; 87070; 87081; 87205; 87340; 87493; 90732; 93005; 93306; 93925; 93970; 94664; Q2036